=== PATIENT | male | born 1965 | race African-American/Black ===

== ENCOUNTER 2019-02-09 10:34 | Inpatient (IN) | payer OTHER ==
[2019-02-09 12:19] VITALS: BMI 27.8
--- NOTE | 2019-02-09 14:00 | HP ---
CIWA Score - Admission Criteria OASAS Guidelines: Admission for Medically Managed Detox: Requires at least one of the followin. CIWA greater than 12 2. Seizures within the past 24 hours 3. Delirium tremens within the past 24 hours 4. Hallucinations within the past 24 hours 5. Acute intervention needed for co occurring medical disorder 6. Acute intervention needed for co occurring psychiatric disorder 7. Severe withdrawal that cannot be handled at a lower level of care (continued vomiting, continued diarrhea, abnormal vital signs) requiring intravenous medication and/or fluids 8. Admission ROS [facility] Chief Complaint: 53 y/o M PMH asthma, HIV (VL undetectable, CD4 500-600 per pt. not on meds, self d/c) who presents for rehab from alcohol. Last drink was 1 week ago - had 1 and a fifth pint of vodka. Drinks this amount daily. However has not drank in a week, states that he started going to AA and it has helped him. Has gone to multiple meetings, does not have a sponsor yet. Longest sobriety in past was six months; aided by family. States that drinking started as a social activity but then he started drinking in the morning to wake up. It helped him feel better in his life. Last used crack cocaine 1 week ago, smokes 3x/month $100 worth. Also marijuana daily 3 blunts at a time. PMH: as above PsxH: denies meds: denies allergies: NKDA FH: denies SH: lives in a motel through an agency. smokes 1/2 ppd x 5-10 yrs. alcohol and crack cocaine use as above. Allergies/Adverse Reactions: Allergies Allergy/AdvReac Type Severity Reaction Status Date / Time No Known Allergies Allergy Verified 02/09/19 12:12 Exam Limitations: No Limitations - Ebola screening Have you traveled outside of the country in the last 21 days: No Have you had contact with anyone from an Ebola affected area: No Have you been sick,other than usual withdrawal symptoms: No Do you have a fever: No - Review of Systems Constitutional: No Symptoms Reported EENT: reports: No Symptoms Reported Respiratory: reports: No Symptoms reported Cardiac: reports: No Symptoms Reported GI: reports: No Symptoms Reported : reports: No Symptoms Reported Musculoskeletal: reports: No Symptoms Reported Integumentary: reports: No Symptoms Reported, Other (+tattoos UE) Neuro: reports: No Symptoms reported Endocrine: reports: No Symptoms Reported Hematology: reports: No Symptoms Reported Psychiatric: reports: Orientated x3 Patient History - Patient Medical History Hx Anemia: No Hx Asthma: Yes (was on albuterol previously has not been compliant) Hx Chronic Obstructive Pulmonary Disease (COPD): No Hx Cancer: No Hx Cardiac Disorders: No Hx Congestive Heart Failure: No Hx Hypertension: No Hx Hypercholesterolemia: No Hx Pacemaker: No HX Cerebrovascular Accident: No Hx Seizures: No Hx Diabetes: No Hx Gastrointestinal Disorders: No Hx Liver Disease: No Hx Genitourinary Disorders: No Hx Sexually Transmitted Disorders: No Hx Renal Disease (ESRD): No Hx Thyroid Disease: No Hx Human Immunodeficiency Virus (HIV): Yes (SINCE 1998. states VL undetectable, cd4 500-600) Hx Hepatitis C: No Hx Depression: No Hx Suicide Attempt: No Hx Bipolar Disorder: No Hx Schizophrenia: No - Patient Surgical History Past Surgical History: No Hx Neurologic Surgery: No Hx Cataract Extraction: No Hx Cardiac Surgery: No Hx Lung Surgery: No Hx Breast Surgery: No Hx Breast Biopsy: No Hx Abdominal Surgery: No Hx Appendectomy: No Hx Cholecystectomy: No Hx Genitourinary Surgery: No Hx Section: No Hx Orthopedic Surgery: No Anesthesia Reaction: No - PPD History Documented Results: Positive w/o proof PPD to be Administered?: No - Reproductive History Patient is a Female of Child Bearing Age (11 -55 yrs old): No - Smoking Cessation Smoking history: Current every day smoker Aproximately how many cigarettes per day: 10 Cigars Per Day: 0 Hx Chewing Tobacco Use: No Initiated information on smoking cessation: Yes 'Breaking Loose' booklet given: 02/09/19 - Substance & Tx. History Substance Use Type: Alcohol, Cocaine, Marijuana Hx Substance Use Treatment: Yes ([facility] 3-4 months ago, detox 2016) - Substances abused Alcohol Substance route: Oral Frequency: Daily Amount used: 1 pint 1/5 vodka Age of first use: 13 Date of last use: 02/02/19 Cocaine Substance route: Smoking Frequency: 1-3 times last 30 days Amount used: $100 worth Marijuana/Hashish Substance route: Smoking Frequency: Daily Amount used: 3 blunts daily Date of last use: 02/08/19 Family Disease History - Family Disease History Family History: Denies Admission Physical Exam BHS - Vital Signs Vital Signs: Vital Signs - 24 hr 02/09/19 12:14 Temperature 97.1 F L Pulse Rate 70 Respiratory 18 Rate Blood Pressure 116/78 - Physical General Appearance: Yes: Within Normal Limits HEENTM: Yes: Within Normal Limits Respiratory: Yes: Lungs Clear Neck: Yes: Supple Breast: Yes: Breast Exam Deferred Cardiology: Yes: Regular Rate, S1, S2 Abdominal: Yes: Soft Genitourinary: Yes: Within Normal Limits Back: Yes: Within Normal Limits Musculoskeletal: Yes: Within Normal Limits Extremities: Yes: Within Normal Limits Neurological: Yes: 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 II-XII NML intact Integumentary: Yes: Dry, Warm Lymphatic: Yes: Within Normal Limits - Diagnostic (1) Alcohol dependence Current Visit: Yes Status: Chronic (2) Marijuana dependence Current Visit: Yes Status: Chronic (3) Cocaine dependence Current Visit: Yes Status: Chronic (4) HIV (human immunodeficiency virus infection) Current Visit: Yes Status: Chronic Qualifiers: HIV symptom status: asymptomatic Qualified Code(s): Z21 - Asymptomatic human immunodeficiency virus [HIV] infection status (5) Nicotine dependence Current Visit: Yes Status: Chronic (6) Asthma Current Visit: Yes Status: Chronic Qualifiers: Asthma complication type: uncomplicated Cleared for Admission S - Detox or Rehab S Level of Care: Medically Managed Detox Regimen/Protocol: Not Applicable Claeared for Rehab Admission: Yes Breathalyzer - Breathalyzer Breathalyzer: 0 Urine Drug Screen - Test Device Lot number: [id number] Expiration date: 11/21/20 - Control Is test valid?: Yes - Results Drug screen NEGATIVE: No Urine drug screen results: THC-Marijuana Inpatient Rehab Admission - Rehab Decision to Admit Inpatient rehab admission?: Yes - Initial Determination Are CD services needed?: Yes Free of communicable disease: Yes Not in need of hospitalization: Yes - Rehab Admission Criteria Previous failed treatment: Yes Poor recovery environment: Yes Comorbidities: Yes Lacks judgement: No Patient is meeting Inpatient Rehab admission criteria:: Yes
[2019-02-09] MEDS ORDERED: MAG HYDROX/AL HYDROX/SIMETH 30 ML UNIT-DOSE CUP PO PRN (14:21)
[2019-02-09] MEDS ORDERED: MENTHOL/PHENOL 1 EACH UD MM PRN (14:21)
[2019-02-09] MEDS ORDERED: IBUPROFEN 400 MG TABLET (FP) PO PRN (14:21)
[2019-02-09] MEDS ORDERED: guaiFENesin 200 MG/10 ML 10 ML UNIT-DOSE CUPS PO PRN (14:21)
[2019-02-09] MEDS ORDERED: MAGNESIUM HYDROX 2400MG/30ML ORAL SUSPENSION 30 ML CUP PO PRN (14:21)
[2019-02-09] MEDS ORDERED: LOPERAMIDE HCL 2 MG CAPSULE PO PRN (14:21)
[2019-02-09] MEDS ORDERED: P-EPHED 60MG/TRIPROLIDI 2.5MG TABLET PO PRN (14:21)
--- NOTE | 2019-02-09 14:22 | PN ---
Teaching Attending Note Name of Resident: Purnima Izaguirre ATTENDING PHYSICIAN STATEMENT I saw and evaluated the patient. I reviewed the resident's note and discussed the case with the resident. I agree with the resident's findings and plan as documented. SUBJECTIVE: pt here requesting rehab from etoh abuse , claims latest use was 1 week ago , denies symptoms , states he " weaned himself off " over several days , prior detox at this facility 2015 , longest sobriety six months; aided by family. cocaine : latest used 1 week ago cannabis : daily 3 blunts OBJECTIVE: wnwd , AAO x 3 , ambulatory . ASSESSMENT AND PLAN: ETOH abuse / COCAINE ABUSE , EPSIODIC / CANNABIS DEPENDENCE -rehab as per insurance auth. Problem List - Problems (1) Cannabis dependence Code(s): F12.20 - CANNABIS DEPENDENCE, UNCOMPLICATED (2) Alcohol dependence Code(s): F10.20 - ALCOHOL DEPENDENCE, UNCOMPLICATED (3) Cocaine dependence Code(s): F14.20 - COCAINE DEPENDENCE, UNCOMPLICATED (4) Nicotine dependence Code(s): F17.200 - NICOTINE DEPENDENCE, UNSPECIFIED, UNCOMPLICATED
[2019-02-09] MEDS ORDERED: ALBUTEROL SO4 0.083% IH SOL 2.5 MG/3 ML VIAL.NEB. NEB PRN (14:23)
[2019-02-09] MEDS: NICOTINE 7 MG/24 HOURS TOPICAL PATCH TD SCH (16:59)
[2019-02-09 18:15] LABS: EPI CELLS 0.7 /HPF (0-5/HPF); HYALINE CASTS 5 /lpf (0-8); URINE APPEARANCE CLEAR; URINE BACTERIA 1.9 /hpf (NEGATIVE); URINE BILIRUBIN NEGATIVE (NEGATIVE); URINE COLOR YELLOW; URINE GLUCOSE (UA) NEGATIVE (NEGATIVE); URINE KETONE NEGATIVE (NEGATIVE); URINE LEUK ESTERASE TRACE (NEGATIVE); URINE NITRITE NEGATIVE (NEGATIVE); URINE PROTEIN NEGATIVE (NEGATIVE); URINE RBC 2 /hpf (0-4); URINE WBC 12 /hpf (0-5)
[2019-02-09 20:13] LABS: URINE CRYSTALS CALCIUM OXALATE /hpf
[2019-02-09] MEDS: THIAMINE HCL 100 MG TABLET (FP) PO SCH (21:52)
[2019-02-10] MEDS: PRENATAL VITAMINS W/ FOLIC ACID TABLET (FP) PO SCH (10:13)
[2019-02-10] MEDS: NICOTINE 7 MG/24 HOURS TOPICAL PATCH TD SCH (10:13)
[2019-02-10 10:40] LABS: BILIRUBIN,TOTAL 0.4 mg/dL (0.2-1); BLOOD UREA NITROGEN 16.4 mg/dL (7-18); CALCIUM 8.2 mg/dL (8.5-10.1); CREATININE 1.1 mg/dL (0.55-1.3); TOT PROT 6.3 g/dl (6.4-8.2)
[2019-02-10 10:42] LABS: HEMATOCRIT 40.4 % (35.4-49); HEMOGLOBIN 13.7 GM/dL (11.7-16.9); MCH 30.1 pg (25.7-33.7); MCHC 33.8 g/dl (32.0-35.9); MEAN CELL VOLUME 89.1 fl (80-96); MEAN PLT VOLUME 9.2 fl (7.5-11.1); PLATELET COUNT 138 K/MM3 (134-434); RBC 4.54 M/mm3 (4.00-5.60); RDW 16.4 % (11.9-15.9); WHITE BLOOD COUNT 6.3 K/mm3 (4.0-10.0)
[2019-02-10] MEDS: THIAMINE HCL 100 MG TABLET (FP) PO SCH (21:08)
[2019-02-10] MEDS: MELATONIN 5 MG TABLETS PO PRN (21:08)
[2019-02-11] MEDS: NICOTINE 7 MG/24 HOURS TOPICAL PATCH TD SCH (10:47)
[2019-02-11] MEDS: PRENATAL VITAMINS W/ FOLIC ACID TABLET (FP) PO SCH (10:47)
[2019-02-11] MEDS: THIAMINE HCL 100 MG TABLET (FP) PO SCH (21:32)
[2019-02-11] MEDS: MELATONIN 5 MG TABLETS PO PRN (21:32)
[2019-02-11] MEDS: ACETAMINOPHEN 325 MG TABLET (FP) PO PRN (21:33)
[2019-02-12] MEDS: PRENATAL VITAMINS W/ FOLIC ACID TABLET (FP) PO SCH (11:11)
[2019-02-12] MEDS: NICOTINE 7 MG/24 HOURS TOPICAL PATCH TD SCH (11:11)
[2019-02-12] MEDS: THIAMINE HCL 100 MG TABLET (FP) PO SCH (21:37)
[2019-02-12] MEDS: MELATONIN 5 MG TABLETS PO PRN (21:37)
[2019-02-13] MEDS: ACETAMINOPHEN 325 MG TABLET (FP) PO PRN (06:52)
[2019-02-13] MEDS: NICOTINE 7 MG/24 HOURS TOPICAL PATCH TD SCH (10:58)
[2019-02-13] MEDS: PRENATAL VITAMINS W/ FOLIC ACID TABLET (FP) PO SCH (10:58)
[2019-02-13] MEDS ORDERED: LIDOCAINE VISCOUS 2% ORAL/TOP 20 ML UNIT-DOSE CUP MM PRN (11:22)
--- NOTE | 2019-02-13 11:36 | PN ---
[facility] Progress Note Note: Pt c/o toothache to right upper molar. Reports hx toothaches and was at the dentist 2 months ago with pain and swelling. Reports was given antibiotics to resolve swelling before extraction. Reports he has an oral surgeon on [address](pt does not remember his name but reports he goes to him on a regular basis ). Pt is reluctant to give information of his primary care provider stating " I do not go to them and I am not taking any meds"(Triumeq) which is posted in his outside pharmacy. Reports "it is messing with my bone and liver". Pt reports he has not made his concerns known to his medical provider(s). However, pt states [facility] is an option for his primary care needs. Pt does not want to further talk about his medication except his tooth pain. Vital Signs - 24 hr 02/13/19 02/13/19 03:30 07:02 Temperature 99.3 F Pulse Rate 89 Respiratory 18 18 Rate Blood Pressure 115/68 Laboratory Tests 02/09/19 02/10/19 02/10/19 15:57 08:00 08:00 WBC RBC Hgb Hct MCV MCH MCHC RDW Plt Count MPV Sodium 142 Potassium 4.0 Chloride 111 H Carbon Dioxide 27 Anion Gap 4 L BUN 16.4 Creatinine 1.1 Est GFR (CKD-EPI)AfAm 87.74 Est GFR (CKD-EPI)NonAf 75.70 Random Glucose 80 Calcium 8.2 L Total Bilirubin 0.4 AST 21 ALT 25 Alkaline Phosphatase 77 Total Protein 6.3 L Albumin 3.0 L Urine Color Yellow Urine Appearance Clear Urine pH 6.0 Ur Specific [place] 1.029 Urine Protein Negative Urine Glucose (UA) Negative Urine Ketones Negative Urine Blood Negative Urine Nitrite Negative Urine Bilirubin Negative Urine Urobilinogen 1.0 Ur Leukocyte Esterase Trace Urine WBC (Auto) 12 Urine RBC (Auto) 2 Urine Casts (Auto) 5 U Epithel Cells (Auto) 0.7 Urine Crystals (Auto) Calcium oxalate Urine Bacteria (Auto) 1.9 RPR Titer Nonreactive 02/10/19 08:00 WBC 6.3 RBC 4.54 Hgb 13.7 Hct 40.4 MCV 89.1 MCH 30.1 MCHC 33.8 RDW 16.4 H Plt Count 138 MPV 9.2 Sodium Potassium Chloride Carbon Dioxide Anion Gap BUN Creatinine Est GFR (CKD-EPI)AfAm Est GFR (CKD-EPI)NonAf Random Glucose Calcium Total Bilirubin AST ALT Alkaline Phosphatase Total Protein Albumin Urine Color Urine Appearance Urine pH Ur Specific [place] Urine Protein Urine Glucose (UA) Urine Ketones Urine Blood Urine Nitrite Urine Bilirubin Urine Urobilinogen Ur Leukocyte Esterase Urine WBC (Auto) Urine RBC (Auto) Urine Casts (Auto) U Epithel Cells (Auto) Urine Crystals (Auto) Urine Bacteria (Auto) RPR Titer oral exam:multiple teeth with fillings/poor maintenance. No redness or swelling to gums. A:tooth ache Hx HIV+ Noncompliance with meds Plan:lidocaine viscous 2% to swish and spit prn as directed. motrin 600 mg po Q6h prn for pain D/w patient to follow up with Dentist/oral surgeon after rehab treatment.
[2019-02-13] MEDS: IBUPROFEN 600 MG TABLET (FP) PO PRN (18:53)
[2019-02-13] MEDS: THIAMINE HCL 100 MG TABLET (FP) PO SCH (21:45)
[2019-02-13] MEDS: MELATONIN 5 MG TABLETS PO PRN (21:45)
[2019-02-14] MEDS: PRENATAL VITAMINS W/ FOLIC ACID TABLET (FP) PO SCH (10:22)
[2019-02-14] MEDS: NICOTINE 7 MG/24 HOURS TOPICAL PATCH TD SCH (10:22)
[2019-02-14] MEDS: IBUPROFEN 600 MG TABLET (FP) PO PRN (15:47)
[2019-02-14] MEDS: MELATONIN 5 MG TABLETS PO PRN (21:35)
[2019-02-14] MEDS: THIAMINE HCL 100 MG TABLET (FP) PO SCH (21:35)
[2019-02-15] MEDS: NICOTINE 7 MG/24 HOURS TOPICAL PATCH TD SCH (11:08)
[2019-02-15] MEDS: PRENATAL VITAMINS W/ FOLIC ACID TABLET (FP) PO SCH (11:08)
[2019-02-15] MEDS: IBUPROFEN 600 MG TABLET (FP) PO PRN (19:19)
[2019-02-15] MEDS: MELATONIN 5 MG TABLETS PO PRN (21:40)
[2019-02-15] MEDS: THIAMINE HCL 100 MG TABLET (FP) PO SCH (21:40)
[2019-02-16] MEDS: PRENATAL VITAMINS W/ FOLIC ACID TABLET (FP) PO SCH (10:47)
[2019-02-16] MEDS: NICOTINE 7 MG/24 HOURS TOPICAL PATCH TD SCH (10:47)
[2019-02-16] MEDS: IBUPROFEN 600 MG TABLET (FP) PO PRN (16:42)
[2019-02-16] MEDS: MELATONIN 5 MG TABLETS PO PRN (21:40)
[2019-02-16] MEDS: THIAMINE HCL 100 MG TABLET (FP) PO SCH (21:40)
[2019-02-17] MEDS: PRENATAL VITAMINS W/ FOLIC ACID TABLET (FP) PO SCH (11:05)
[2019-02-17] MEDS: NICOTINE 7 MG/24 HOURS TOPICAL PATCH TD SCH (11:05)
[2019-02-17] MEDS: IBUPROFEN 600 MG TABLET (FP) PO PRN (18:02)
[2019-02-17] MEDS: MELATONIN 5 MG TABLETS PO PRN (21:23)
[2019-02-17] MEDS: THIAMINE HCL 100 MG TABLET (FP) PO SCH (21:23)
[2019-02-18] MEDS: PRENATAL VITAMINS W/ FOLIC ACID TABLET (FP) PO SCH (10:48)
[2019-02-18] MEDS: NICOTINE 7 MG/24 HOURS TOPICAL PATCH TD SCH (10:48)
[2019-02-18] MEDS: ACETAMINOPHEN 325 MG TABLET (FP) PO PRN (20:25)
[2019-02-18] MEDS: MELATONIN 5 MG TABLETS PO PRN (21:06)
[2019-02-18] MEDS: THIAMINE HCL 100 MG TABLET (FP) PO SCH (21:06)
[2019-02-19] MEDS: PRENATAL VITAMINS W/ FOLIC ACID TABLET (FP) PO SCH (11:14)
[2019-02-19] MEDS: NICOTINE 7 MG/24 HOURS TOPICAL PATCH TD SCH (11:14)
[2019-02-19] MEDS: THIAMINE HCL 100 MG TABLET (FP) PO SCH (22:11)
[2019-02-19] MEDS: MELATONIN 5 MG TABLETS PO PRN (22:12)
[2019-02-20] MEDS: IBUPROFEN 600 MG TABLET (FP) PO PRN ×2 (06:56→20:22)
[2019-02-20] MEDS: PRENATAL VITAMINS W/ FOLIC ACID TABLET (FP) PO SCH (10:55)
[2019-02-20] MEDS: NICOTINE 7 MG/24 HOURS TOPICAL PATCH TD SCH (10:55)
[2019-02-20] MEDS: THIAMINE HCL 100 MG TABLET (FP) PO SCH (21:59)
[2019-02-20] MEDS: MELATONIN 5 MG TABLETS PO PRN (21:59)
[2019-02-21] MEDS: NICOTINE 7 MG/24 HOURS TOPICAL PATCH TD SCH (10:48)
[2019-02-21] MEDS: PRENATAL VITAMINS W/ FOLIC ACID TABLET (FP) PO SCH (10:48)
[2019-02-21] MEDS: THIAMINE HCL 100 MG TABLET (FP) PO SCH (21:49)
[2019-02-21] MEDS: MELATONIN 5 MG TABLETS PO PRN (21:49)
[2019-02-22] MEDS: PRENATAL VITAMINS W/ FOLIC ACID TABLET (FP) PO SCH (11:35)
[2019-02-22] MEDS: NICOTINE 7 MG/24 HOURS TOPICAL PATCH TD SCH (11:35)
[2019-02-22] MEDS: THIAMINE HCL 100 MG TABLET (FP) PO SCH (21:46)
[2019-02-22] MEDS: MELATONIN 5 MG TABLETS PO PRN (21:46)
[2019-02-23 07:05] VITALS: BP 94/62; PULSE 89; TEMP 98
[2019-02-23] MEDS: PRENATAL VITAMINS W/ FOLIC ACID TABLET (FP) PO SCH ×2 (09:37→09:38)
[2019-02-23] MEDS: NICOTINE 7 MG/24 HOURS TOPICAL PATCH TD SCH (09:37)
--- NOTE | 2019-02-23 11:56 | PN ---
S Progress Note (SOAP) Subjective: pt is a 53 y/o male admitted to rehab with a hx of alcohol,cocaine and marijuana dependence. Pt has a PMHx HIV+ and asthma. Pt reports he has not been taking Rx Triumeq for sometimes and was not on it while in treatment here. D/w pt to follow up with his PCP at [facility] for disease management. Pt denies s/h/i Objective: 02/23/19 12:07 General:well groomed,ambulates with steady gait. Heent:Normocephalic, perrla,eomi,throat wnl Heart:s1 s2, rrr Lungs:cta, corazon. Abdomen:+bs, soft, nt,nd Ext:No e/c/c Neuro:Alert o x 3, Crii-xii intact Vital Signs - 24 hr 02/23/19 02/23/19 02/23/19 00:30 03:30 07:04 Temperature 98.0 F Pulse Rate 89 Respiratory 18 18 18 Rate Blood Pressure 94/62 Laboratory Tests 02/09/19 02/10/19 02/10/19 15:57 08:00 08:00 WBC RBC Hgb Hct MCV MCH MCHC RDW Plt Count MPV Sodium 142 Potassium 4.0 Chloride 111 H Carbon Dioxide 27 Anion Gap 4 L BUN 16.4 Creatinine 1.1 Est GFR (CKD-EPI)AfAm 87.74 Est GFR (CKD-EPI)NonAf 75.70 Random Glucose 80 Calcium 8.2 L Total Bilirubin 0.4 AST 21 ALT 25 Alkaline Phosphatase 77 Total Protein 6.3 L Albumin 3.0 L Urine Color Yellow Urine Appearance Clear Urine pH 6.0 Ur Specific [place] 1.029 Urine Protein Negative Urine Glucose (UA) Negative Urine Ketones Negative Urine Blood Negative Urine Nitrite Negative Urine Bilirubin Negative Urine Urobilinogen 1.0 Ur Leukocyte Esterase Trace Urine WBC (Auto) 12 Urine RBC (Auto) 2 Urine Casts (Auto) 5 U Epithel Cells (Auto) 0.7 Urine Crystals (Auto) Calcium oxalate Urine Bacteria (Auto) 1.9 RPR Titer Nonreactive 02/10/19 08:00 WBC 6.3 RBC 4.54 Hgb 13.7 Hct 40.4 MCV 89.1 MCH 30.1 MCHC 33.8 RDW 16.4 H Plt Count 138 MPV 9.2 Sodium Potassium Chloride Carbon Dioxide Anion Gap BUN Creatinine Est GFR (CKD-EPI)AfAm Est GFR (CKD-EPI)NonAf Random Glucose Calcium Total Bilirubin AST ALT Alkaline Phosphatase Total Protein Albumin Urine Color Urine Appearance Urine pH Ur Specific [place] Urine Protein Urine Glucose (UA) Urine Ketones Urine Blood Urine Nitrite Urine Bilirubin Urine Urobilinogen Ur Leukocyte Esterase Urine WBC (Auto) Urine RBC (Auto) Urine Casts (Auto) U Epithel Cells (Auto) Urine Crystals (Auto) Urine Bacteria (Auto) RPR Titer Home Medications Medication Instructions Recorded NK [No Known Home Medication] 02/09/19 Assessment: 02/23/19 12:10 Nad Medically stable [facility] Inpatient Services Medical - Diagnosis (1) Cannabis dependence Status: Chronic (2) Alcohol dependence Qualifiers: Substance use status: uncomplicated Qualified Code(s): F10.20 - Alcohol dependence, uncomplicated Status: Chronic (3) Asthma Qualifiers: Asthma severity: unspecified severity Asthma persistence: unspecified Asthma complication type: unspecified Qualified Code(s): J45.909 - Unspecified asthma, uncomplicated Status: Chronic (4) Cocaine dependence Qualifiers: Substance use status: uncomplicated Qualified Code(s): F14.20 - Cocaine dependence, uncomplicated Status: Chronic (5) HIV (human immunodeficiency virus infection) Qualifiers: HIV symptom status: asymptomatic Qualified Code(s): Z21 - Asymptomatic human immunodeficiency virus [HIV] infection status Status: Chronic (6) Nicotine dependence Qualifiers: Nicotine product type: cigarettes Substance use status: uncomplicated Qualified Code(s): F17.210 - Nicotine dependence, cigarettes, uncomplicated Status: Chronic Initialized on 02/23/19 11:56 - END OF NOTE Plan: [facility] [address] [place], [place] Follow up with PCP at [facility] within 1-2 weeks after discharge.
== END 2019-02-23 09:45 | disposition home or self-care (01) | DRG 772 ==
LOC: YASAS 10:34 → Y5N 14:32
PROVIDERS: ADMIT Neuromusculoskeletal Medicine & OMM; ATTEND Neuromusculoskeletal Medicine & OMM
PROC: HZ42ZZZ Group Counseling for Substance Abuse Treatment, Cognitive-Behavioral (ICD-10-PCS; principal; 2019-02-09)
DX: F10.20 Alcohol dependence, uncomplicated (principal); F14.20 Cocaine dependence, uncomplicated; F12.20 Cannabis dependence, uncomplicated; F17.200 Nicotine dependence, unspecified, uncomplicated; Z21 Asymptomatic human immunodeficiency virus [HIV] infection status; J45.909 Unspecified asthma, uncomplicated; K08.89 Other specified disorders of teeth and supporting structures
CPT/HCPCS: 36415; 71046-TC-FY; 80053; 81003; 85027; 86593

== ENCOUNTER 2019-05-06 08:41 | Inpatient (IN) | payer OTHER ==
[2019-05-06 09:00] VITALS: BMI 27.8
--- NOTE | 2019-05-06 09:56 | HP ---
COWS - Scale Resting Pulse: 1= [place] 81-100 Sweatin= Chills/Flushing Restless Observation: 1= Difficult to Sit Still Pupil Size: 1= Pupils >than Normal Bone or Joint Aches: 1= Mild Discomfort Runny Nose/ Eye Tearin= Nasal Congestion GI Upset > 30mins: 1= Stomach Cramp Tremor Observation: 1= Tremor [place], Not Seen Yawning Observation: 0= None Anxiety or Irritability: 1=Feels Anxious/Irritable Goose Flesh Skin: 3=Piloerection COWS Score: 12 CIWA Score - Admission Criteria OASAS Guidelines: Admission for Medically Managed Detox: Requires at least one of the followin. CIWA greater than 12 2. Seizures within the past 24 hours 3. Delirium tremens within the past 24 hours 4. Hallucinations within the past 24 hours 5. Acute intervention needed for co occurring medical disorder 6. Acute intervention needed for co occurring psychiatric disorder 7. Severe withdrawal that cannot be handled at a lower level of care (continued vomiting, continued diarrhea, abnormal vital signs) requiring intravenous medication and/or fluids 8. Admitting History and Physical - Smoking History Smoking history: Current every day smoker Aproximately how many cigarettes per day: 10 - Alcohol/Substance Use Hx Alcohol Use: Yes Admission ROS S - HPI Chief Complaint: heroin detox Allergies/Adverse Reactions: Allergies Allergy/AdvReac Type Severity Reaction Status Date / Time No Known Allergies Allergy Verified 05/06/19 08:55 History of Present Illness: 53 yo, L eye blindness, HIV pos- does not take medications, with long h/o heroin use, was last here 3 months ago. Pt states he was feeling unwell after taking heroin- too strong- called ambulance and was taken to [facility] ER. Pt not given meds. Pt brought here. He would like to complete detox and go to rehab. Pt lives at a [facility]. Does not work. Has SSI. 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- for relaxation - Ebola screening Have you traveled outside of the country in the last 21 days: No Have you had contact with anyone from an Ebola affected area: No - Review of Systems Constitutional: No Symptoms Reported EENT: reports: No Symptoms Reported Respiratory: reports: No Symptoms reported Cardiac: reports: No Symptoms Reported GI: reports: No Symptoms Reported : reports: No Symptoms Reported Musculoskeletal: reports: No Symptoms Reported Integumentary: reports: No Symptoms Reported Neuro: reports: No Symptoms reported Endocrine: reports: No Symptoms Reported Hematology: reports: No Symptoms Reported Psychiatric: reports: No Sypmtoms Reported Other Systems: Reviewed and Negative Patient History - Patient Medical History Hx Anemia: No Hx Asthma: Yes (was on albuterol previously has not been compliant) Hx Chronic Obstructive Pulmonary Disease (COPD): No Hx Cancer: No Hx Cardiac Disorders: No Hx Congestive Heart Failure: No Hx Hypertension: No Hx Hypercholesterolemia: No Hx Pacemaker: No HX Cerebrovascular Accident: No Hx Seizures: No Hx Diabetes: No Hx Gastrointestinal Disorders: No Hx Liver Disease: No Hx Genitourinary Disorders: No Hx Sexually Transmitted Disorders: No Hx Renal Disease (ESRD): No Hx Thyroid Disease: No Hx Human Immunodeficiency Virus (HIV): Yes (SINCE 1998. states VL undetectable, cd4 500-600) Hx Hepatitis C: No Hx Depression: No Hx Suicide Attempt: No Hx Bipolar Disorder: No Hx Schizophrenia: No - Patient Surgical History Past Surgical History: No Hx Neurologic Surgery: No Hx Cataract Extraction: No Hx Cardiac Surgery: No Hx Lung Surgery: No Hx Breast Surgery: No Hx Breast Biopsy: No Hx Abdominal Surgery: No Hx Appendectomy: No Hx Cholecystectomy: No Hx Genitourinary Surgery: No Hx Section: No Hx Orthopedic Surgery: No Anesthesia Reaction: No - Smoking Cessation Smoking history: Current every day smoker Aproximately how many cigarettes per day: 10 Cigars Per Day: 0 Hx Chewing Tobacco Use: No Initiated information on smoking cessation: Yes 'Breaking Loose' booklet given: 05/06/19 - Substances abused Alcohol Substance route: Oral Frequency: Daily Amount used: 1/5 vodka Age of first use: 13 Date of last use: 05/05/19 Cocaine Substance route: Smoking Frequency: 1-3 times last 30 days Amount used: $100 worth Marijuana/Hashish Substance route: Smoking Frequency: Daily Amount used: 3 blunts daily Age of first use: 15 Date of last use: 05/05/19 Crack Substance route: Smoking Frequency: 1-3 times last 30 days Amount used: $200 Age of first use: 18 Date of last use: 05/05/19 Heroin Substance route: Inhalation Frequency: Daily Amount used: 1 bundle Age of first use: 20 Date of last use: 05/05/19 Admission Physical Exam BHS - Vital Signs Vital Signs: Vital Signs - 24 hr 05/06/19 08:54 Temperature 97.3 F L Pulse Rate 75 Respiratory 18 Rate Blood Pressure 103/69 - Physical General Appearance: Yes: Within Normal Limits, No Apparent Distress HEENTM: Yes: Within Normal Limits, EOMI, Hearing grossly Normal Respiratory: Yes: Within Normal Limits, Chest Non-Tender, Lungs Clear Cardiology: Yes: Within Normal Limits, Regular Rhythm Abdominal: Yes: Within Normal Limits, Normal Bowel Sounds Genitourinary: Yes: Within Normal Limits Back: Yes: Within Normal Limits Musculoskeletal: Yes: Within Normal Limits Extremities: Yes: Within Normal Limits, Normal Inspection Neurological: Yes: Within Normal Limits, Fully Oriented Integumentary: Yes: Within Normal Limits, Normal Color Lymphatic: Yes: Within Normal Limits - Diagnostic (1) Cannabis dependence Current Visit: No Status: Chronic (2) HIV (human immunodeficiency virus infection) Current Visit: No Status: Chronic Qualifiers: HIV symptom status: asymptomatic Qualified Code(s): Z21 - Asymptomatic human immunodeficiency virus [HIV] infection status (3) Opioid dependence with withdrawal Current Visit: No Status: Chronic Breathalyzer - Breathalyzer Breathalyzer: 0 Urine Drug Screen - Test Device Lot number: [id number] Expiration date: 12/22/20 - Control Is test valid?: Yes - Results Drug screen NEGATIVE: Yes Urine drug screen results: THC-Marijuana, TORY-Cocaine, FEN-Fentanyl, MOP-Opiates , OXY-Oxycodone Inpatient Rehab Admission - Rehab Decision to Admit Inpatient rehab admission?: No
[2019-05-06] MEDS ORDERED: BISMUTH SUBSALICYLATE 524 MG/30 ML UD PO PRN (10:01)
[2019-05-06] MEDS ORDERED: ACETAMINOPHEN 325 MG TABLET (FP) PO PRN ×2 (10:01)
[2019-05-06] MEDS ORDERED: METHADONE HCL 10 MG TABLET (FOR DETOX USE ONLY) PO ONE (10:01)
[2019-05-06] MEDS ORDERED: IBUPROFEN 400 MG TABLET (FP) PO PRN (10:01)
[2019-05-06] MEDS ORDERED: MAGNESIUM CITRATE 300 ML BOTTLE PO PRN (10:01)
[2019-05-06] MEDS ORDERED: cloNIDine HCL 0.1 MG TABLET PO PRN (10:01)
[2019-05-06] MEDS ORDERED: NICOTINE POLACRILEX 2 MG GUM BUC PRN (10:01)
[2019-05-06] MEDS ORDERED: MAGNESIUM HYDROX 2400MG/30ML ORAL SUSPENSION 30 ML CUP PO PRN (10:01)
[2019-05-06] MEDS ORDERED: MENTHOL/PHENOL 1 EACH UD MM PRN (10:01)
[2019-05-06] MEDS: clonazePAM 0.5 MG TABLET PO PRN (16:54)
[2019-05-06] MEDS: THIAMINE HCL 100 MG TABLET (FP) PO SCH (22:11)
[2019-05-06] MEDS: MELATONIN 5 MG TABLETS PO PRN (22:12)
[2019-05-06] MEDS: hydrOXYzine PAMOATE 25 MG CAPSULE (FP) PO PRN (22:12)
[2019-05-07] MEDS: hydrOXYzine PAMOATE 25 MG CAPSULE (FP) PO PRN ×2 (07:03→15:54)
[2019-05-07] MEDS ORDERED: METHADONE HCL 10 MG TABLET (FOR DETOX USE ONLY) ONE (09:49)
[2019-05-07] MEDS ORDERED: METHADONE HCL 5 MG TABLET (FOR DETOX USE ONLY) ONE (09:49)
[2019-05-07] MEDS ORDERED: METHADONE (DETOX) 20 MG, METHADONE (DETOX) 5 MG PO ONE (10:00)
[2019-05-07 10:08] LABS: HEMATOCRIT 38.7 % (35.4-49); HEMOGLOBIN 13.1 GM/dL (11.7-16.9); MCH 30.3 pg (25.7-33.7); MEAN CELL VOLUME 89.1 fl (80-96); MEAN PLT VOLUME 9.3 fl (7.5-11.1); PLATELET COUNT 121 K/MM3 (134-434); RBC 4.34 M/mm3 (4.00-5.60); RDW 17.6 % (11.9-15.9); WHITE BLOOD COUNT 4.8 K/mm3 (4.0-10.0)
[2019-05-07] MEDS: PRENATAL VITAMINS W/ FOLIC ACID TABLET (FP) PO SCH (10:10)
[2019-05-07] MEDS: MAG HYDROX/AL HYDROX/SIMETH 30 ML UNIT-DOSE CUP PO PRN (10:10)
[2019-05-07 10:18] LABS: BILIRUBIN,TOTAL 0.2 mg/dL (0.2-1); BLOOD UREA NITROGEN 22.4 mg/dL (7-18); CALCIUM 8.3 mg/dL (8.5-10.1); CREATININE 1.1 mg/dL (0.55-1.3); POTASSIUM 4.3 mmol/L (3.5-5.1); TOT PROT 5.9 g/dl (6.4-8.2)
--- NOTE | 2019-05-07 18:24 | PN ---
BHS COWS - Scale Resting Pulse: 0= [place] 80 or Below Sweatin= Chills/Flushing Restless Observation: 1= Difficult to Sit Still Pupil Size: 0= Normal to Room Light Bone or Joint Aches: 1= Mild Discomfort Runny Nose/ Eye Tearin= Nasal Congestion GI Upset > 30mins: 0= None Tremor Observation of Outstretched Hands: 0= None Yawning Observation: 1= 1-2x During Session Anxiety or Irritability: 2=Irritable/Anxious Goose Flesh Skin: 3=Piloerection COWS Score: 10 BHS Progress Note (SOAP) Subjective: Anxious, Nasal Congestion, Sweating. Objective: PATIENT A & O X 3, OBSERVED AMBULATING ON DETOX UNIT UNASSISTED. IN NO ACUTE DISTRESS. 05/07/19 18:22 Vital Signs Temperature 98.9 F 05/07/19 17:04 Pulse Rate 70 05/07/19 17:04 Respiratory Rate 18 05/07/19 17:04 Blood Pressure 87/56 L 05/07/19 17:04 O2 Sat by Pulse Oximetry (%) Laboratory Tests 05/07/19 05/07/19 05/07/19 08:00 08:00 08:00 WBC 4.8 RBC 4.34 Hgb 13.1 Hct 38.7 MCV 89.1 MCH 30.3 MCHC 34.0 RDW 17.6 H Plt Count 121 L MPV 9.3 Sodium 140 Potassium 4.3 Chloride 105 Carbon Dioxide 30 Anion Gap 5 L BUN 22.4 H Creatinine 1.1 Est GFR (CKD-EPI)AfAm 87.74 Est GFR (CKD-EPI)NonAf 75.70 Random Glucose 81 Calcium 8.3 L Total Bilirubin 0.2 AST 40 H ALT 28 Alkaline Phosphatase 85 Total Protein 5.9 L Albumin 3.0 L RPR Titer Nonreactive LABS NOTED. Assessment: 05/07/19 18:23 WITHDRAWAL SYMPTOMS. THROMBOCYTOPENIA. ELEVATED AST LEVEL. AZOTEMIA. 05/07/19 18:24 Plan: CONTINUE DETOX. INCREASE DAILY PO WATER INTAKE.
[2019-05-07] MEDS: clonazePAM 0.5 MG TABLET PO PRN (19:18)
[2019-05-07] MEDS: THIAMINE HCL 100 MG TABLET (FP) PO SCH (22:03)
[2019-05-07] MEDS: MELATONIN 5 MG TABLETS PO PRN (22:03)
[2019-05-08] MEDS: MAG HYDROX/AL HYDROX/SIMETH 30 ML UNIT-DOSE CUP PO PRN ×2 (01:56→20:37)
[2019-05-08] MEDS: clonazePAM 0.5 MG TABLET PO PRN ×3 (05:32→22:07)
[2019-05-08] MEDS ORDERED: METHADONE HCL 10 MG TABLET (FOR DETOX USE ONLY) PO ONE (10:00)
[2019-05-08] MEDS: PRENATAL VITAMINS W/ FOLIC ACID TABLET (FP) PO SCH (10:10)
[2019-05-08] MEDS ORDERED: FAMOTIDINE 20 MG TABLET PO ONE (10:20)
--- NOTE | 2019-05-08 15:21 | PN ---
BHS COWS - Scale Resting Pulse: 0= [place] 80 or Below Sweatin= Chills/Flushing Restless Observation: 1= Difficult to Sit Still Pupil Size: 0= Normal to Room Light Bone or Joint Aches: 0= None Runny Nose/ Eye Tearin= Nasal Congestion GI Upset > 30mins: 0= None Tremor Observation of Outstretched Hands: 0= None Yawning Observation: 1= 1-2x During Session Anxiety or Irritability: 2=Irritable/Anxious Goose Flesh Skin: 3=Piloerection COWS Score: 9 BHS Progress Note (SOAP) Subjective: Anxious, Nasal Congestion, Sweating, Heartburn. Patient reports That Current withdrawal Detox Symptoms in General Are Subsiding in Severity. Objective: PATIENT A & O X 3, OBSERVED AMBULATING ON DETOX UNIT UNASSISTED. IN NO ACUTE DISTRESS. 05/08/19 15:22 Vital Signs Temperature 97.7 F 05/08/19 13:28 Pulse Rate 57 L 05/08/19 13:28 Respiratory Rate 18 05/08/19 13:28 Blood Pressure 114/78 05/08/19 13:28 O2 Sat by Pulse Oximetry (%) Laboratory Tests 05/07/19 05/07/19 05/07/19 08:00 08:00 08:00 WBC 4.8 RBC 4.34 Hgb 13.1 Hct 38.7 MCV 89.1 MCH 30.3 MCHC 34.0 RDW 17.6 H Plt Count 121 L MPV 9.3 Sodium 140 Potassium 4.3 Chloride 105 Carbon Dioxide 30 Anion Gap 5 L BUN 22.4 H Creatinine 1.1 Est GFR (CKD-EPI)AfAm 87.74 Est GFR (CKD-EPI)NonAf 75.70 Random Glucose 81 Calcium 8.3 L Total Bilirubin 0.2 AST 40 H ALT 28 Alkaline Phosphatase 85 Total Protein 5.9 L Albumin 3.0 L RPR Titer Nonreactive LABS NOTED. Assessment: 05/08/19 15:23 WITHDRAWAL SYMPTOMS. ELEVATED AST LEVEL. THROMBOCYTOPENIA. Plan: CONTINUE DETOX. INCREASE DAILY PO WATER INTAKE. FAMOTIDINE PO FOR HEARTBURN.
[2019-05-08] MEDS: hydrOXYzine PAMOATE 25 MG CAPSULE (FP) PO PRN (20:37)
[2019-05-08] MEDS: THIAMINE HCL 100 MG TABLET (FP) PO SCH (22:07)
[2019-05-08] MEDS: MELATONIN 5 MG TABLETS PO PRN (22:08)
[2019-05-09] MEDS: clonazePAM 0.5 MG TABLET PO PRN ×2 (05:17→19:18)
[2019-05-09] MEDS ORDERED: METHADONE HCL 10 MG TABLET (FOR DETOX USE ONLY) ONE (09:20)
[2019-05-09] MEDS ORDERED: METHADONE HCL 5 MG TABLET (FOR DETOX USE ONLY) ONE (09:20)
[2019-05-09] MEDS ORDERED: METHADONE (DETOX) 10 MG, METHADONE (DETOX) 5 MG PO ONE (10:00)
[2019-05-09] MEDS: PRENATAL VITAMINS W/ FOLIC ACID TABLET (FP) PO SCH (10:04)
[2019-05-09] MEDS: hydrOXYzine PAMOATE 25 MG CAPSULE (FP) PO PRN ×2 (10:04→21:38)
[2019-05-09] MEDS: METHOCARBAMOL 500 MG TABLET PO PRN (10:04)
[2019-05-09] MEDS: FAMOTIDINE 20 MG TABLET PO PRN (11:21)
--- NOTE | 2019-05-09 16:38 | PN ---
[facility] COWS - Scale Resting Pulse: 0= [place] 80 or Below Sweatin= No chills or Flushing Restless Observation: 1= Difficult to Sit Still Pupil Size: 0= Normal to Room Light Bone or Joint Aches: 1= Mild Discomfort Runny Nose/ Eye Tearin= None GI Upset > 30mins: 0= None Tremor Observation of Outstretched Hands: 0= None Yawning Observation: 1= 1-2x During Session Anxiety or Irritability: 2=Irritable/Anxious Goose Flesh Skin: 0=Smooth Skin COWS Score: 5 BHS Progress Note (SOAP) Subjective: Anxious, Restless, Body Aches (Mild). Objective: PATIENT A & O X 3, OBSERVED AMBULATING ON DETOX UNIT UNASSISTED. IN NO ACUTE DISTRESS. 05/09/19 16:35 Vital Signs Temperature 98.7 F 05/09/19 13:27 Pulse Rate 66 05/09/19 13:27 Respiratory Rate 18 05/09/19 13:27 Blood Pressure 105/69 05/09/19 13:27 O2 Sat by Pulse Oximetry (%) Laboratory Tests 05/07/19 05/07/19 05/07/19 08:00 08:00 08:00 WBC 4.8 RBC 4.34 Hgb 13.1 Hct 38.7 MCV 89.1 MCH 30.3 MCHC 34.0 RDW 17.6 H Plt Count 121 L MPV 9.3 Sodium 140 Potassium 4.3 Chloride 105 Carbon Dioxide 30 Anion Gap 5 L BUN 22.4 H Creatinine 1.1 Est GFR (CKD-EPI)AfAm 87.74 Est GFR (CKD-EPI)NonAf 75.70 Random Glucose 81 Calcium 8.3 L Total Bilirubin 0.2 AST 40 H ALT 28 Alkaline Phosphatase 85 Total Protein 5.9 L Albumin 3.0 L RPR Titer Nonreactive LABS NOTED. Assessment: 05/09/19 16:35 WITHDRAWAL SYMPTOMS. Plan: CONTINUE DETOX. PATIENT REPORTS THAT CURRENT WITHDRAWAL / DETOX SYMPTOMS ARE MILD IN DEGREE AND THAT HE IS TOLERATING THEM WELL. AT PATIENT'S REQUEST, CURRENT DETOX MEDICATION REGIMEN MODIFIED SO THAT PATIENT MAY BE DISCHARGED TOMORROW, 05/10/2019, SO THAT HE MAY RETURN HOME TO ATTEND TO PERSONAL ISSUES. PATIENT WILL THEN PROCEED ON TO REHAB ON 05/11/2019, FOR AFTERCARE.
[2019-05-09] MEDS: MAG HYDROX/AL HYDROX/SIMETH 30 ML UNIT-DOSE CUP PO PRN (19:18)
[2019-05-09] MEDS: MELATONIN 5 MG TABLETS PO PRN (21:38)
[2019-05-09] MEDS: THIAMINE HCL 100 MG TABLET (FP) PO SCH (21:38)
[2019-05-10] MEDS: FAMOTIDINE 20 MG TABLET PO PRN (00:30)
[2019-05-10] MEDS: METHOCARBAMOL 500 MG TABLET PO PRN ×2 (00:31→08:28)
[2019-05-10] MEDS ORDERED: METHADONE HCL 10 MG TABLET (FOR DETOX USE ONLY) PO ONE ×2 (06:00→10:00)
[2019-05-10 09:02] VITALS: BP 111/70; PULSE 77; TEMP 98.5
[2019-05-10] MEDS: PRENATAL VITAMINS W/ FOLIC ACID TABLET (FP) PO SCH (10:38)
--- NOTE | 2019-05-10 12:30 | DS ---
[facility] Detox Discharge Summary Admission Date: 05/06/19 Discharge Date: 05/10/19 - History Present History: Opioid Dependence Additional Comments: did well with methadone detox regimen no complication through out the detox stay alert oriented x 3 cardiac S1S2 regular rate rhythm respiratory clear lung bilaterally on auscultation extremities full range of motion - Physical Exam Results Vital Signs: opiate withdrawal sx Vital Signs Temperature 98.5 F 05/10/19 09:01 Pulse Rate 77 05/10/19 09:01 Respiratory Rate 18 05/10/19 09:01 Blood Pressure 111/70 05/10/19 09:01 O2 Sat by Pulse Oximetry (%) Laboratory Last Values WBC 4.8 K/mm3 (4.0-10.0) 05/07/19 08:00 RBC 4.34 M/mm3 (4.00-5.60) 05/07/19 08:00 Hgb 13.1 GM/dL (11.7-16.9) 05/07/19 08:00 Hct 38.7 % (35.4-49) 05/07/19 08:00 MCV 89.1 fl (80-96) 05/07/19 08:00 MCH 30.3 pg (25.7-33.7) 05/07/19 08:00 MCHC 34.0 g/dl (32.0-35.9) 05/07/19 08:00 RDW 17.6 % (11.9-15.9) H 05/07/19 08:00 Plt Count 121 K/MM3 (134-434) L 05/07/19 08:00 MPV 9.3 fl (7.5-11.1) 05/07/19 08:00 Sodium 140 mmol/L (136-145) 05/07/19 08:00 Potassium 4.3 mmol/L (3.5-5.1) 05/07/19 08:00 Chloride 105 mmol/L (98-107) 05/07/19 08:00 Carbon Dioxide 30 mmol/L (21-32) 05/07/19 08:00 Anion Gap 5 MMOL/L (8-16) L 05/07/19 08:00 BUN 22.4 mg/dL (7-18) H 05/07/19 08:00 Creatinine 1.1 mg/dL (0.55-1.3) 05/07/19 08:00 Est GFR (CKD-EPI)AfAm 87.74 05/07/19 08:00 Est GFR (CKD-EPI)NonAf 75.70 05/07/19 08:00 Random Glucose 81 mg/dL (74-106) 05/07/19 08:00 Calcium 8.3 mg/dL (8.5-10.1) L 05/07/19 08:00 Total Bilirubin 0.2 mg/dL (0.2-1) 05/07/19 08:00 AST 40 U/L (15-37) H 05/07/19 08:00 ALT 28 U/L (13-61) 05/07/19 08:00 Alkaline Phosphatase 85 U/L (45-117) 05/07/19 08:00 Total Protein 5.9 g/dl (6.4-8.2) L 05/07/19 08:00 Albumin 3.0 g/dl (3.4-5.0) L 05/07/19 08:00 RPR Titer Nonreactive (NONREACTIVE) 05/07/19 08:00 lab noted Pertinent Admission Physical Exam Findings: opiate withdrawal sx - Treatment Hospital Course: Detox Protocol Followed, Detoxed Safely, Responded well, Discharged Condition Good, Rehab Referral Accepted Patient has Accepted a Rehab Referral to: [facility] - Medication Discharge Medications: Ambulatory Orders NK [No Known Home Medication] 02/09/19 - Diagnosis (1) Asthma Status: Chronic Qualifiers: Asthma severity: mild Asthma persistence: intermittent Asthma complication type: with status asthmaticus Qualified Code(s): J45.22 - Mild intermittent asthma with status asthmaticus (2) HIV (human immunodeficiency virus infection) Status: Chronic Qualifiers: HIV symptom status: asymptomatic Qualified Code(s): Z21 - Asymptomatic human immunodeficiency virus [HIV] infection status (3) Nicotine dependence Status: Acute Qualifiers: Nicotine product type: cigarettes Substance use status: in withdrawal Qualified Code(s): F17.213 - Nicotine dependence, cigarettes, with withdrawal (4) Opioid dependence with withdrawal Status: Acute - AMA Did Patient Leave Against Medical Advice: No COWS (PN) - Opiate Withdrawal Resting Pulse: 0= [place] 80 or Below Sweatin= Chills/Flushing Restless Observation: 0= Sits Still Pupil Size: 0= Normal to Room Light Bone or Joint Aches: 0= None Runny Nose/ Eye Tearin= None GI Upset > 30mins: 0= None Tremor Observation of Outstretched Hands: 1= Tremor [place], Not Seen Yawning Observation: 1= 1-2x During Session Anxiety or Irritability: 0= None Goose Flesh Skin: 0=Smooth Skin COWS Score: 3
[2019-05-11] MEDS ORDERED: METHADONE HCL 5 MG TABLET (FOR DETOX USE ONLY) PO ONE (06:00)
== END 2019-05-10 08:45 | disposition home or self-care (01) | DRG 773 ==
LOC: YASAS 08:41 → Y3N 10:06
PROVIDERS: ADMIT Allergy & Immunology; ATTEND Allergy & Immunology
PROC: HZ2ZZZZ Detoxification Services for Substance Abuse Treatment (ICD-10-PCS; principal; 2019-05-06)
DX: F11.23 Opioid dependence with withdrawal (principal); F10.20 Alcohol dependence, uncomplicated; F14.10 Cocaine abuse, uncomplicated; F12.20 Cannabis dependence, uncomplicated; F17.210 Nicotine dependence, cigarettes, uncomplicated; Z21 Asymptomatic human immunodeficiency virus [HIV] infection status; J45.22 Mild intermittent asthma with status asthmaticus; D69.6 Thrombocytopenia, unspecified; R74.0 Nonspecific elevation of levels of transaminase and lactic acid dehydrogenase [LDH]
CPT/HCPCS: 36415; 80053; 85027; 86593

== ENCOUNTER 2022-12-02 17:10 | Inpatient (IN) | payer OTHER ==
[2022-12-02 17:44] VITALS: BMI 26.4
[2022-12-02] MEDS ORDERED: IBUPROFEN 400 MG TABLET (FP) PO PRN (20:28)
[2022-12-02] MEDS ORDERED: MAG HYDROX/AL HYDROX/SIMETH 30 ML UNIT-DOSE CUP PO PRN (20:28)
[2022-12-02] MEDS ORDERED: BENZOCAINE/MENTHOL (CHLORASEPTIC ) LOZENGE MM PRN (20:28)
[2022-12-02] MEDS ORDERED: MELATONIN 5 MG TABLETS PO PRN (20:28)
[2022-12-02] MEDS ORDERED: BENZONATATE 200 MG CAPSULE PO PRN (20:28)
[2022-12-02] MEDS ORDERED: ONDANSETRON *ODT* 4 MG TABLET SL PRN (20:28)
[2022-12-02] MEDS ORDERED: NICOTINE POLACRILEX 2 MG GUM BUC PRN (20:28)
[2022-12-02] MEDS ORDERED: BISMUTH SUBSALICYLATE 524 MG/30 ML PO PRN (20:28)
[2022-12-02] MEDS ORDERED: P-EPHED 60MG/TRIPROLIDI 2.5MG TABLET PO PRN (20:28)
[2022-12-02] MEDS ORDERED: POLYETHYLENE GLYCOL (HEALTHYLAX) 3350 17 GM PACKET PO PRN (20:28)
[2022-12-02] MEDS ORDERED: DICYCLOMINE HCL 10 MG CAPSULE PO PRN (20:28)
[2022-12-02] MEDS ORDERED: LOPERAMIDE HCL 2 MG CAPSULE PO PRN (20:28)
[2022-12-02] MEDS ORDERED: ACETAMINOPHEN 325 MG TABLET (FP) PO PRN ×2 (20:28)
[2022-12-02] MEDS ORDERED: NALOXONE HCL (KLOXXADO) 8 MG SPRAY NS PRN (20:28)
[2022-12-02] MEDS ORDERED: NALOXONE HCL 0.4 MG/ML VIAL IM PRN (20:28)
[2022-12-02] MEDS ORDERED: guaiFENesin 600 MG TABLET.ER (FP) PO PRN (20:28)
[2022-12-02] MEDS ORDERED: MAGNESIUM HYDROX 2400MG/30ML ORAL SUSPENSION 30 ML CUP PO PRN (20:28)
[2022-12-02] MEDS: THIAMINE HCL 100 MG TABLET (FP) PO SCH (22:24)
[2022-12-02] MEDS: diazePAM 5 MG TABLET PO SCH (22:25)
[2022-12-03] MEDS: IBUPROFEN 600 MG TABLET (FP) PO PRN ×2 (04:04→22:13)
[2022-12-03] MEDS: diazePAM 5 MG TABLET PO SCH ×4 (04:04→22:13)
[2022-12-03] MEDS: PRENATAL VITAMINS W/ FOLIC ACID TABLET (FP) PO SCH (10:24)
[2022-12-03 13:34] LABS: HEMATOCRIT 37.6 % (35.4-49); HEMOGLOBIN 13.3 GM/dL (11.7-16.9); MCH 31.9 pg (25.7-33.7); MCHC 35.4 g/dl (32.0-35.9); MEAN CELL VOLUME 90.1 fl (80-96); MEAN PLT VOLUME 8.9 fl (7.5-11.1); PLATELET COUNT 134 10^3/uL (134-434); RBC 4.18 M/mm3 (4.00-5.60); RDW 17.5 % (11.9-15.9); WHITE BLOOD COUNT 5.7 K/mm3 (4.0-10.0)
[2022-12-03 13:43] LABS: POTASSIUM 4.2 mmol/L (3.5-5.1)
[2022-12-03 13:46] LABS: CALCIUM 9.4 mg/dL (8.5-10.1)
[2022-12-03 13:48] LABS: ALBUMIN 3.1 g/dl (3.4-5.0); BLOOD UREA NITROGEN 28.4 mg/dL (7-18)
[2022-12-03 13:52] LABS: BILIRUBIN,TOTAL 0.5 mg/dL (0.2-1); TOT PROT 6.2 g/dl (6.4-8.2)
[2022-12-03] MEDS: THIAMINE HCL 100 MG TABLET (FP) PO SCH (22:13)
[2022-12-04] MEDS: diazePAM 5 MG TABLET PO SCH ×3 (05:57→22:20)
[2022-12-04] MEDS: PRENATAL VITAMINS W/ FOLIC ACID TABLET (FP) PO SCH (10:22)
[2022-12-04] MEDS: diazePAM 5 MG TABLET PO PRN (10:22)
[2022-12-04] MEDS: THIAMINE HCL 100 MG TABLET (FP) PO SCH (22:20)
[2022-12-05] MEDS: diazePAM 5 MG TABLET PO SCH ×2 (05:40→17:55)
[2022-12-05] MEDS: PRENATAL VITAMINS W/ FOLIC ACID TABLET (FP) PO SCH (10:37)
[2022-12-05] MEDS: diazePAM 5 MG TABLET PO PRN (11:06)
[2022-12-05] MEDS: IBUPROFEN 600 MG TABLET (FP) PO PRN (17:54)
[2022-12-05 20:58] VITALS: RESP 18
[2022-12-05] MEDS: THIAMINE HCL 100 MG TABLET (FP) PO SCH (22:54)
[2022-12-05] MEDS ORDERED: diazePAM 5 MG TABLET PO ONE (23:13)
[2022-12-06] MEDS ORDERED: diazePAM 5 MG TABLET PO ONE (06:00)
[2022-12-06 07:15] VITALS: TEMP 97.7
[2022-12-06] MEDS ORDERED: hydrOXYzine PAMOATE 50 MG CAPSULE (FP) PO PRN (09:35)
[2022-12-06] MEDS ORDERED: METHOCARBAMOL 500 MG TABLET PO SCH (10:00)
[2022-12-06] MEDS: PRENATAL VITAMINS W/ FOLIC ACID TABLET (FP) PO SCH (10:29)
[2022-12-06 11:01] VITALS: BP 121/90; PULSE 88
== END 2022-12-06 12:22 | disposition other institution (70) | DRG 774 ==
LOC: YASAS 17:10 → Y3N 21:05
PROVIDERS: ADMIT Allergy & Immunology; ATTEND Surgery
PROC: HZ2ZZZZ Detoxification Services for Substance Abuse Treatment (ICD-10-PCS; principal; 2022-12-02)
DX: F10.230 Alcohol dependence with withdrawal, uncomplicated (principal); F14.20 Cocaine dependence, uncomplicated; F15.20 Other stimulant dependence, uncomplicated; F12.20 Cannabis dependence, uncomplicated; F17.210 Nicotine dependence, cigarettes, uncomplicated; F32.A Depression, unspecified; Z21 Asymptomatic human immunodeficiency virus [HIV] infection status
CPT/HCPCS: 36415; 71045-TC-FY; 80053; 85027; 86780; C9803-CS; U0003; U0005

== ENCOUNTER 2022-12-18 11:36 | Inpatient (IN) | payer OTHER ==
[2022-12-18 11:58] VITALS: BMI 26.2
[2022-12-18] MEDS ORDERED: NICOTINE 10 MG CARTRIDGE (INHALER) IH PRN (12:43)
[2022-12-18] MEDS ORDERED: IBUPROFEN 400 MG TABLET (FP) PO PRN (12:43)
[2022-12-18] MEDS ORDERED: NALOXONE HCL (KLOXXADO) 8 MG SPRAY NS PRN (12:43)
[2022-12-18] MEDS ORDERED: MAGNESIUM HYDROX 2400MG/30ML ORAL SUSPENSION 30 ML CUP PO PRN (12:43)
[2022-12-18] MEDS ORDERED: ACETAMINOPHEN 325 MG TABLET (FP) PO PRN (12:43)
[2022-12-18] MEDS ORDERED: POLYETHYLENE GLYCOL (HEALTHYLAX) 3350 17 GM PACKET PO PRN (12:43)
[2022-12-18] MEDS ORDERED: methaDONE HCL 10 MG TABLET (FOR DETOX USE ONLY) PO ONE (12:43)
[2022-12-18] MEDS ORDERED: NALOXONE HCL 0.4 MG/ML VIAL IM PRN (12:43)
[2022-12-18] MEDS ORDERED: LOPERAMIDE HCL 2 MG CAPSULE PO PRN (12:43)
[2022-12-18] MEDS ORDERED: guaiFENesin 600 MG TABLET.ER (FP) PO PRN (12:43)
[2022-12-18] MEDS ORDERED: IBUPROFEN 600 MG TABLET (FP) PO PRN (12:43)
[2022-12-18] MEDS ORDERED: BENZOCAINE/MENTHOL (CHLORASEPTIC ) LOZENGE MM PRN (12:43)
[2022-12-18] MEDS ORDERED: DICYCLOMINE HCL 10 MG CAPSULE PO PRN (12:43)
[2022-12-18] MEDS ORDERED: MAG HYDROX/AL HYDROX/SIMETH 30 ML UNIT-DOSE CUP PO PRN (12:43)
[2022-12-18] MEDS ORDERED: BENZONATATE 200 MG CAPSULE PO PRN (12:43)
[2022-12-18] MEDS ORDERED: METHOCARBAMOL 500 MG TABLET PO PRN (12:43)
[2022-12-18] MEDS ORDERED: BISMUTH SUBSALICYLATE 524 MG/30 ML PO PRN (12:43)
[2022-12-18] MEDS ORDERED: ONDANSETRON *ODT* 4 MG TABLET SL PRN (12:43)
[2022-12-18] MEDS: chlordiazePOXIDE HCL 25 MG CAPSULE PO PRN (13:39)
[2022-12-18] MEDS: chlordiazePOXIDE HCL 25 MG CAPSULE PO SCH ×2 (18:03→22:21)
[2022-12-18] MEDS: THIAMINE HCL 100 MG TABLET (FP) PO SCH (22:20)
[2022-12-18] MEDS: MELATONIN 5 MG TABLETS PO SCH (22:21)
[2022-12-19] MEDS: chlordiazePOXIDE HCL 25 MG CAPSULE PO SCH ×4 (05:39→22:15)
[2022-12-19] MEDS: PRENATAL VITAMINS W/ FOLIC ACID TABLET (FP) PO SCH (10:24)
[2022-12-19] MEDS: ABACAVIR/DOLUTEGRAVIR/LAMIVUDI (TRIUMEQ) TABLET PO SCH (10:26)
[2022-12-19] MEDS: NICOTINE 21 MG/24 HOURS TOPICAL PATCH TD SCH (10:28)
[2022-12-19 11:27] LABS: HEMATOCRIT 40.5 % (35.4-49); HEMOGLOBIN 13.9 GM/dL (11.7-16.9); MCH 30.9 pg (25.7-33.7); MCHC 34.4 g/dl (32.0-35.9); MEAN CELL VOLUME 89.7 fl (80-96); MEAN PLT VOLUME 8.9 fl (7.5-11.1); PLATELET COUNT 130 10^3/uL (134-434); RBC 4.51 M/mm3 (4.00-5.60); RDW 16.6 % (11.9-15.9); WHITE BLOOD COUNT 4.6 K/mm3 (4.0-10.0)
[2022-12-19 11:33] LABS: POTASSIUM 4.4 mmol/L (3.5-5.1)
[2022-12-19 11:35] LABS: CALCIUM 9.1 mg/dL (8.5-10.1)
[2022-12-19 11:36] LABS: ALBUMIN 3.2 g/dl (3.4-5.0); BLOOD UREA NITROGEN 20.7 mg/dL (7-18)
[2022-12-19 11:38] LABS: CREATININE 1.1 mg/dL (0.55-1.3)
[2022-12-19 11:40] LABS: BILIRUBIN,TOTAL 0.2 mg/dL (0.2-1); TOT PROT 6.6 g/dl (6.4-8.2)
[2022-12-19] MEDS: THIAMINE HCL 100 MG TABLET (FP) PO SCH (22:15)
[2022-12-19] MEDS: MELATONIN 5 MG TABLETS PO SCH (22:15)
[2022-12-20] MEDS: chlordiazePOXIDE HCL 25 MG CAPSULE PO SCH ×4 (05:20→22:38)
[2022-12-20] MEDS ORDERED: methaDONE HCL 10 MG TABLET (FOR DETOX USE ONLY) PO ONE (10:00)
[2022-12-20] MEDS: NICOTINE 21 MG/24 HOURS TOPICAL PATCH TD SCH (10:07)
[2022-12-20] MEDS: PRENATAL VITAMINS W/ FOLIC ACID TABLET (FP) PO SCH (10:08)
[2022-12-20] MEDS: ABACAVIR/DOLUTEGRAVIR/LAMIVUDI (TRIUMEQ) TABLET PO SCH (10:08)
[2022-12-20] MEDS: chlordiazePOXIDE HCL 25 MG CAPSULE PO PRN (13:55)
[2022-12-20] MEDS: hydrOXYzine PAMOATE 25 MG CAPSULE (FP) PO PRN ×2 (13:55→22:37)
[2022-12-20] MEDS: THIAMINE HCL 100 MG TABLET (FP) PO SCH (22:35)
[2022-12-20] MEDS: METHOCARBAMOL 500 MG TABLET PO PRN (22:35)
[2022-12-20] MEDS: MELATONIN 5 MG TABLETS PO SCH (22:35)
[2022-12-21] MEDS ORDERED: chlordiazePOXIDE HCL 10 MG CAPSULE PO PRN
[2022-12-21] MEDS: chlordiazePOXIDE HCL 10 MG CAPSULE PO SCH ×4 (05:18→22:37)
[2022-12-21] MEDS: NICOTINE 21 MG/24 HOURS TOPICAL PATCH TD SCH (10:26)
[2022-12-21] MEDS: ABACAVIR/DOLUTEGRAVIR/LAMIVUDI (TRIUMEQ) TABLET PO SCH (10:26)
[2022-12-21] MEDS: PRENATAL VITAMINS W/ FOLIC ACID TABLET (FP) PO SCH (10:26)
[2022-12-21] MEDS: METHOCARBAMOL 500 MG TABLET PO PRN (21:01)
[2022-12-21] MEDS: THIAMINE HCL 100 MG TABLET (FP) PO SCH (21:02)
[2022-12-21] MEDS: hydrOXYzine PAMOATE 25 MG CAPSULE (FP) PO PRN (21:02)
[2022-12-21] MEDS: MELATONIN 5 MG TABLETS PO SCH (21:03)
[2022-12-22] MEDS: chlordiazePOXIDE HCL 10 MG CAPSULE PO SCH ×2 (05:37→17:53)
[2022-12-22] MEDS ORDERED: methaDONE HCL 10 MG TABLET (FOR DETOX USE ONLY) PO ONE (10:00)
[2022-12-22] MEDS: PRENATAL VITAMINS W/ FOLIC ACID TABLET (FP) PO SCH (10:17)
[2022-12-22] MEDS: ABACAVIR/DOLUTEGRAVIR/LAMIVUDI (TRIUMEQ) TABLET PO SCH (10:17)
[2022-12-22] MEDS: NICOTINE 21 MG/24 HOURS TOPICAL PATCH TD SCH (10:18)
[2022-12-22] MEDS: hydrOXYzine PAMOATE 25 MG CAPSULE (FP) PO PRN (21:38)
[2022-12-22] MEDS: METHOCARBAMOL 500 MG TABLET PO PRN (21:38)
[2022-12-22] MEDS: MELATONIN 5 MG TABLETS PO SCH (21:38)
[2022-12-22] MEDS: THIAMINE HCL 100 MG TABLET (FP) PO SCH (21:38)
[2022-12-23] MEDS ORDERED: chlordiazePOXIDE HCL 10 MG CAPSULE PO ONE (05:00)
[2022-12-23 09:33] VITALS: BP 101/69; PULSE 70; RESP 18; TEMP 98.6
[2022-12-23] MEDS: PRENATAL VITAMINS W/ FOLIC ACID TABLET (FP) PO SCH (10:13)
[2022-12-23] MEDS: NICOTINE 21 MG/24 HOURS TOPICAL PATCH TD SCH (10:13)
[2022-12-23] MEDS: ABACAVIR/DOLUTEGRAVIR/LAMIVUDI (TRIUMEQ) TABLET PO SCH (10:13)
== END 2022-12-23 11:58 | disposition other institution (70) | DRG 773 ==
LOC: YASAS 11:36 → Y3N 12:31
PROVIDERS: ADMIT Allergy & Immunology; ATTEND Psychiatry & Neurology Pain Medicine
PROC: HZ2ZZZZ Detoxification Services for Substance Abuse Treatment (ICD-10-PCS; principal; 2022-12-18)
DX: F11.23 Opioid dependence with withdrawal (principal); F10.230 Alcohol dependence with withdrawal, uncomplicated; F17.210 Nicotine dependence, cigarettes, uncomplicated; B20 Human immunodeficiency virus [HIV] disease; E86.0 Dehydration; G47.00 Insomnia, unspecified; I95.9 Hypotension, unspecified; H54.62 Unqualified visual loss, left eye, normal vision right eye; M21.332 Wrist drop, left wrist; Z86.19 Personal history of other infectious and parasitic diseases; Z86.69 Personal history of other diseases of the nervous system and sense organs
CPT/HCPCS: 36415; 80053; 85027; 86780; 87635; 87811; C9803-CS; U0003; U0005

== ENCOUNTER 2022-12-23 12:07 | Inpatient (IN) | payer OTHER ==
[2022-12-23 12:42] VITALS: BP 92/69; PULSE 81; RESP 15; TEMP 97.1
== END 2022-12-23 12:39 | DRG 861 ==
LOC: YASAS 12:07 → Y3E 12:39 → UNDOADMIN 12:39
PROVIDERS: ADMIT Allergy & Immunology; ATTEND Psychiatry & Neurology Pain Medicine
DX: Z53.29 Procedure and treatment not carried out because of patient's decision for other reasons (principal)

== ENCOUNTER 2023-05-29 16:56 | Inpatient (IN) | payer OTHER ==
[2023-05-29 20:07] VITALS: BMI 24.5
[2023-05-29] MEDS ORDERED: chlordiazePOXIDE HCL 25 MG CAPSULE PO PRN (21:37)
[2023-05-29] MEDS ORDERED: ONDANSETRON *ODT* 4 MG TABLET SL PRN (21:37)
[2023-05-29] MEDS ORDERED: LOPERAMIDE HCL 2 MG CAPSULE PO PRN (21:37)
[2023-05-29] MEDS ORDERED: NICOTINE POLACRILEX 2 MG GUM BUC PRN (21:37)
[2023-05-29] MEDS ORDERED: IBUPROFEN 600 MG TABLET (FP) PO PRN (21:37)
[2023-05-29] MEDS ORDERED: MAGNESIUM HYDROX 2400MG/30ML ORAL SUSPENSION 30 ML CUP PO PRN (21:37)
[2023-05-29] MEDS ORDERED: DICYCLOMINE HCL 10 MG CAPSULE PO PRN (21:37)
[2023-05-29] MEDS ORDERED: NALOXONE HCL (KLOXXADO) 8 MG SPRAY NS PRN (21:37)
[2023-05-29] MEDS ORDERED: IBUPROFEN 400 MG TABLET (FP) PO PRN (21:37)
[2023-05-29] MEDS ORDERED: NALOXONE HCL 0.4 MG/ML VIAL IM PRN (21:37)
[2023-05-29] MEDS ORDERED: BENZOCAINE/MENTHOL (CHLORASEPTIC ) LOZENGE MM PRN (21:37)
[2023-05-29] MEDS ORDERED: guaiFENesin 600 MG TABLET.ER (FP) PO PRN (21:37)
[2023-05-29] MEDS ORDERED: METHOCARBAMOL 500 MG TABLET PO PRN (21:37)
[2023-05-29] MEDS ORDERED: MAG HYDROX/AL HYDROX/SIMETH 30 ML UNIT-DOSE CUP PO PRN (21:37)
[2023-05-29] MEDS ORDERED: POLYETHYLENE GLYCOL (HEALTHYLAX) 3350 17 GM PACKET PO PRN (21:37)
[2023-05-29] MEDS ORDERED: BISMUTH SUBSALICYLATE 524 MG/30 ML PO PRN (21:37)
[2023-05-29] MEDS ORDERED: ACETAMINOPHEN 325 MG TABLET (FP) PO PRN (21:37)
[2023-05-29] MEDS ORDERED: BENZONATATE 200 MG CAPSULE PO PRN (21:37)
[2023-05-29] MEDS ORDERED: chlordiazePOXIDE HCL 25 MG CAPSULE ONE (23:52)
[2023-05-29] MEDS ORDERED: MELATONIN 5 MG TABLETS ONE (23:52)
[2023-05-29] MEDS: chlordiazePOXIDE HCL 25 MG CAPSULE PO SCH (23:54)
[2023-05-29] MEDS: MELATONIN 5 MG TABLETS PO SCH (23:56)
[2023-05-29] MEDS: THIAMINE HCL 100 MG TABLET (FP) PO SCH (23:56)
[2023-05-30] MEDS ORDERED: hydrOXYzine PAMOATE 25 MG CAPSULE (FP) PO ONE (00:11)
[2023-05-30] MEDS: hydrOXYzine PAMOATE 25 MG CAPSULE (FP) PO PRN (00:14)
[2023-05-30] MEDS: chlordiazePOXIDE HCL 25 MG CAPSULE PO SCH ×4 (05:00→22:35)
[2023-05-30] MEDS: PRENATAL VITAMINS W/ FOLIC ACID TABLET (FP) PO SCH (10:56)
[2023-05-30] MEDS: NICOTINE 14 MG/24 HOURS TOPICAL PATCH TD SCH (10:57)
[2023-05-30 11:34] LABS: CHLORIDE 108 mmol/L (98-107); POTASSIUM 3.8 mmol/L (3.5-5.1); SODIUM 141 mmol/L (136-145)
[2023-05-30 11:37] LABS: ALBUMIN 2.9 g/dl (3.4-5.0); ANION GAP 8 mmol/L (4-13); BLOOD UREA NITROGEN 23.5 mg/dL (7-18); CALCIUM 8.8 mg/dL (8.5-10.1); CO2 25 mmol/L (21-32); GLUCOSE,RANDOM 86 mg/dL (74-106)
[2023-05-30 11:39] LABS: HEMATOCRIT 38.9 % (35.4-49); HEMOGLOBIN 13.4 GM/dL (11.7-16.9); MCH 30.5 pg (25.7-33.7); MCHC 34.4 g/dl (32.0-35.9); MEAN CELL VOLUME 88.6 fl (80-96); MEAN PLT VOLUME 8.5 fl (7.5-11.1); PLATELET COUNT 154 10^3/uL (134-434); RBC 4.39 M/mm3 (4.00-5.60); RDW 16.6 % (11.9-15.9); WHITE BLOOD COUNT 5.7 K/mm3 (4.0-10.0)
[2023-05-30 11:40] LABS: CREATININE 1.1 mg/dL (0.55-1.3); SGOT/AST 20 U/L (15-37); SGPT/ALT 19 U/L (13-61)
[2023-05-30 11:42] LABS: BILIRUBIN,TOTAL 0.5 mg/dL (0.2-1)
[2023-05-30 11:43] LABS: ALK PHOS 82 U/L (45-117)
[2023-05-30] MEDS: ABACAVIR/DOLUTEGRAVIR/LAMIVUDI (TRIUMEQ) TABLET PO SCH (14:15)
[2023-05-30] MEDS: THIAMINE HCL 100 MG TABLET (FP) PO SCH (22:35)
[2023-05-30] MEDS: MELATONIN 5 MG TABLETS PO SCH (22:35)
[2023-05-31] MEDS: chlordiazePOXIDE HCL 25 MG CAPSULE PO SCH ×5 (06:00→23:19)
[2023-05-31] MEDS: THIAMINE HCL 100 MG TABLET (FP) PO SCH ×2 (10:30→23:19)
[2023-05-31] MEDS: NICOTINE 14 MG/24 HOURS TOPICAL PATCH TD SCH (10:53)
[2023-05-31] MEDS: ABACAVIR/DOLUTEGRAVIR/LAMIVUDI (TRIUMEQ) TABLET PO SCH (10:53)
[2023-05-31] MEDS: PRENATAL VITAMINS W/ FOLIC ACID TABLET (FP) PO SCH (10:53)
[2023-05-31] MEDS: MELATONIN 5 MG TABLETS PO SCH ×2 (22:30→23:19)
[2023-06-01] MEDS ORDERED: chlordiazePOXIDE HCL 10 MG CAPSULE PO PRN
[2023-06-01] MEDS: chlordiazePOXIDE HCL 10 MG CAPSULE PO SCH ×5 (05:55→23:10)
[2023-06-01] MEDS: ABACAVIR/DOLUTEGRAVIR/LAMIVUDI (TRIUMEQ) TABLET PO SCH (10:33)
[2023-06-01] MEDS: NICOTINE 14 MG/24 HOURS TOPICAL PATCH TD SCH (10:33)
[2023-06-01] MEDS: PRENATAL VITAMINS W/ FOLIC ACID TABLET (FP) PO SCH (10:33)
[2023-06-01] MEDS: hydrOXYzine PAMOATE 25 MG CAPSULE (FP) PO PRN (17:38)
[2023-06-01] MEDS: MELATONIN 5 MG TABLETS PO SCH (23:10)
[2023-06-01] MEDS: THIAMINE HCL 100 MG TABLET (FP) PO SCH (23:10)
[2023-06-02] MEDS: chlordiazePOXIDE HCL 10 MG CAPSULE PO SCH ×2 (05:31→17:41)
[2023-06-02] MEDS: NICOTINE 14 MG/24 HOURS TOPICAL PATCH TD SCH (10:13)
[2023-06-02] MEDS: PRENATAL VITAMINS W/ FOLIC ACID TABLET (FP) PO SCH (10:13)
[2023-06-02] MEDS: ABACAVIR/DOLUTEGRAVIR/LAMIVUDI (TRIUMEQ) TABLET PO SCH (10:13)
[2023-06-02] MEDS: hydrOXYzine PAMOATE 25 MG CAPSULE (FP) PO PRN (17:44)
[2023-06-02] MEDS: MELATONIN 5 MG TABLETS PO SCH (22:34)
[2023-06-02] MEDS: THIAMINE HCL 100 MG TABLET (FP) PO SCH (22:34)
[2023-06-03] MEDS ORDERED: chlordiazePOXIDE HCL 10 MG CAPSULE PO ONE (05:00)
[2023-06-03 09:06] VITALS: BP 99/56; PULSE 73; RESP 18; TEMP 97.7
[2023-06-03] MEDS: PRENATAL VITAMINS W/ FOLIC ACID TABLET (FP) PO SCH (09:16)
[2023-06-03] MEDS: NICOTINE 14 MG/24 HOURS TOPICAL PATCH TD SCH (09:16)
[2023-06-03] MEDS: ABACAVIR/DOLUTEGRAVIR/LAMIVUDI (TRIUMEQ) TABLET PO SCH (09:16)
== END 2023-06-03 09:30 | disposition home or self-care (01) | DRG 775 ==
LOC: YASAS 16:56 → Y6N 23:40
PROVIDERS: ADMIT Allergy & Immunology; ATTEND Surgery
PROC: HZ2ZZZZ Detoxification Services for Substance Abuse Treatment (ICD-10-PCS; principal; 2023-05-29)
DX: F10.230 Alcohol dependence with withdrawal, uncomplicated (principal); F17.210 Nicotine dependence, cigarettes, uncomplicated; B20 Human immunodeficiency virus [HIV] disease; H54.62 Unqualified visual loss, left eye, normal vision right eye; Z79.899 Other long term (current) drug therapy
CPT/HCPCS: 36415; 80053; 80307; 85027; 86780; 87635

== ENCOUNTER 2023-06-11 20:09 | Inpatient (IN) | payer OTHER ==
[2023-06-11 21:58] VITALS: BMI 25.7
[2023-06-11] MEDS ORDERED: NALOXONE HCL 0.4 MG/ML VIAL IM PRN (22:29)
[2023-06-11] MEDS ORDERED: hydrOXYzine PAMOATE 25 MG CAPSULE (FP) PO PRN (22:29)
[2023-06-11] MEDS ORDERED: NALOXONE HCL (KLOXXADO) 8 MG SPRAY NS PRN (22:29)
[2023-06-11] MEDS ORDERED: BENZONATATE 200 MG CAPSULE PO PRN (22:29)
[2023-06-11] MEDS ORDERED: guaiFENesin 600 MG TABLET.ER (FP) PO PRN (22:29)
[2023-06-11] MEDS ORDERED: POLYETHYLENE GLYCOL (HEALTHYLAX) 3350 17 GM PACKET PO PRN (22:29)
[2023-06-11] MEDS ORDERED: BENZOCAINE/MENTHOL (CHLORASEPTIC ) LOZENGE MM PRN (22:29)
[2023-06-11] MEDS ORDERED: NICOTINE POLACRILEX 2 MG GUM BUC PRN (22:29)
[2023-06-11] MEDS ORDERED: IBUPROFEN 400 MG TABLET (FP) PO PRN (22:29)
[2023-06-11] MEDS ORDERED: ACETAMINOPHEN 325 MG TABLET (FP) PO PRN (22:29)
[2023-06-11] MEDS ORDERED: MAGNESIUM HYDROX 2400MG/30ML ORAL SUSPENSION 30 ML CUP PO PRN (22:29)
[2023-06-11] MEDS ORDERED: ONDANSETRON *ODT* 4 MG TABLET SL PRN (22:29)
[2023-06-11] MEDS ORDERED: DICYCLOMINE HCL 10 MG CAPSULE PO PRN (22:29)
[2023-06-11] MEDS ORDERED: BISMUTH SUBSALICYLATE 524 MG/30 ML PO PRN (22:29)
[2023-06-11] MEDS ORDERED: LOPERAMIDE HCL 2 MG CAPSULE PO PRN (22:29)
[2023-06-11] MEDS ORDERED: MAG HYDROX/AL HYDROX/SIMETH 30 ML UNIT-DOSE CUP PO PRN (22:29)
[2023-06-12] MEDS ORDERED: chlordiazePOXIDE HCL 25 MG CAPSULE PO PRN (06:15)
[2023-06-12] MEDS ORDERED: chlordiazePOXIDE HCL 25 MG CAPSULE ONE (06:35)
[2023-06-12] MEDS: PRENATAL VITAMINS W/ FOLIC ACID TABLET (FP) PO SCH (10:24)
[2023-06-12] MEDS: chlordiazePOXIDE HCL 25 MG CAPSULE PO SCH ×4 (10:26→22:29)
[2023-06-12] MEDS: NICOTINE 21 MG/24 HOURS TOPICAL PATCH TD SCH (10:27)
[2023-06-12] MEDS ORDERED: ALBUTEROL SO4 2.5/IPRATROPIUM 0.5 INH SOL 3 ML VIAL.NEB. NEB ONE (13:00)
[2023-06-12] MEDS: predniSONE 20 MG TABLET (UD) PO SCH (13:11)
[2023-06-12] MEDS ORDERED: ALBUTEROL SO4 2.5/IPRATROPIUM 0.5 INH SOL 3 ML VIAL.NEB. NEB PRN (14:41)
[2023-06-12] MEDS: ABACAVIR/DOLUTEGRAVIR/LAMIVUDI (TRIUMEQ) TABLET PO SCH (15:25)
[2023-06-12 15:32] LABS: HEMATOCRIT 38.2 % (35.4-49); HEMOGLOBIN 12.9 GM/dL (11.7-16.9); MCHC 33.9 g/dl (32.0-35.9); MEAN CELL VOLUME 88.6 fl (80-96); MEAN PLT VOLUME 8.5 fl (7.5-11.1); PLATELET COUNT 155 10^3/uL (134-434); RBC 4.31 M/mm3 (4.00-5.60); WHITE BLOOD COUNT 11.5 K/mm3 (4.0-10.0)
[2023-06-12 15:35] LABS: CHLORIDE 111 mmol/L (98-107); POTASSIUM 3.8 mmol/L (3.5-5.1); SODIUM 139 mmol/L (136-145)
[2023-06-12 15:43] LABS: ALBUMIN 2.8 g/dl (3.4-5.0); ANION GAP 5 mmol/L (4-13); BLOOD UREA NITROGEN 24.4 mg/dL (7-18); CO2 23 mmol/L (21-32); GLUCOSE,RANDOM 97 mg/dL (74-106)
[2023-06-12 15:45] LABS: CREATININE 1.2 mg/dL (0.55-1.3); SGOT/AST 33 U/L (15-37); SGPT/ALT 24 U/L (13-61)
[2023-06-12 15:46] LABS: BILIRUBIN,TOTAL 0.9 mg/dL (0.2-1); TOT PROT 6.1 g/dl (6.4-8.2)
[2023-06-12 15:48] LABS: ALK PHOS 80 U/L (45-117)
[2023-06-12] MEDS: THIAMINE HCL 100 MG TABLET (FP) PO SCH (22:29)
[2023-06-12] MEDS: MELATONIN 5 MG TABLETS PO SCH (22:29)
[2023-06-12] MEDS: METHOCARBAMOL 500 MG TABLET PO PRN (22:29)
[2023-06-13] MEDS: chlordiazePOXIDE HCL 25 MG CAPSULE PO SCH ×4 (05:28→22:41)
[2023-06-13] MEDS: ABACAVIR/DOLUTEGRAVIR/LAMIVUDI (TRIUMEQ) TABLET PO SCH (10:23)
[2023-06-13] MEDS: PRENATAL VITAMINS W/ FOLIC ACID TABLET (FP) PO SCH (10:23)
[2023-06-13] MEDS: predniSONE 20 MG TABLET (UD) PO SCH (10:23)
[2023-06-13] MEDS: NICOTINE 21 MG/24 HOURS TOPICAL PATCH TD SCH (10:26)
[2023-06-13] MEDS: MELATONIN 5 MG TABLETS PO SCH (22:41)
[2023-06-13] MEDS: THIAMINE HCL 100 MG TABLET (FP) PO SCH (22:41)
[2023-06-14] MEDS: chlordiazePOXIDE HCL 25 MG CAPSULE PO SCH ×4 (05:34→22:19)
[2023-06-14] MEDS: PRENATAL VITAMINS W/ FOLIC ACID TABLET (FP) PO SCH (09:19)
[2023-06-14] MEDS: IBUPROFEN 600 MG TABLET (FP) PO PRN (09:19)
[2023-06-14] MEDS: METHOCARBAMOL 500 MG TABLET PO PRN ×2 (09:20→17:28)
[2023-06-14] MEDS: ABACAVIR/DOLUTEGRAVIR/LAMIVUDI (TRIUMEQ) TABLET PO SCH (09:20)
[2023-06-14] MEDS: predniSONE 20 MG TABLET (UD) PO SCH (09:21)
[2023-06-14] MEDS: NICOTINE 21 MG/24 HOURS TOPICAL PATCH TD SCH (09:23)
[2023-06-14] MEDS: guaiFENesin 200 MG/10 ML 10 ML UNIT-DOSE CUPS PO PRN ×2 (10:01→17:28)
[2023-06-14] MEDS: MELATONIN 5 MG TABLETS PO SCH (22:19)
[2023-06-14] MEDS: THIAMINE HCL 100 MG TABLET (FP) PO SCH (22:19)
[2023-06-15] MEDS ORDERED: chlordiazePOXIDE HCL 10 MG CAPSULE PO PRN
[2023-06-15] MEDS: chlordiazePOXIDE HCL 10 MG CAPSULE PO SCH ×4 (05:53→22:27)
[2023-06-15] MEDS: METHOCARBAMOL 500 MG TABLET PO PRN ×2 (05:54→22:28)
[2023-06-15] MEDS: guaiFENesin 200 MG/10 ML 10 ML UNIT-DOSE CUPS PO PRN (05:54)
[2023-06-15] MEDS: IBUPROFEN 600 MG TABLET (FP) PO PRN (08:41)
[2023-06-15] MEDS: ABACAVIR/DOLUTEGRAVIR/LAMIVUDI (TRIUMEQ) TABLET PO SCH (10:50)
[2023-06-15] MEDS: NICOTINE 21 MG/24 HOURS TOPICAL PATCH TD SCH (10:50)
[2023-06-15] MEDS: PRENATAL VITAMINS W/ FOLIC ACID TABLET (FP) PO SCH (10:50)
[2023-06-15] MEDS: predniSONE 20 MG TABLET (UD) PO SCH (10:50)
[2023-06-15] MEDS: ALBUTEROL SO4 2.5/IPRATROPIUM 0.5 INH SOL 3 ML VIAL.NEB. NEB SCH (18:23)
[2023-06-15] MEDS: THIAMINE HCL 100 MG TABLET (FP) PO SCH (22:27)
[2023-06-15] MEDS: MELATONIN 5 MG TABLETS PO SCH (22:27)
[2023-06-16] MEDS: ALBUTEROL SO4 2.5/IPRATROPIUM 0.5 INH SOL 3 ML VIAL.NEB. NEB SCH ×7 (00:07→17:12)
[2023-06-16] MEDS: chlordiazePOXIDE HCL 10 MG CAPSULE PO SCH ×2 (05:35→17:06)
[2023-06-16] MEDS: ABACAVIR/DOLUTEGRAVIR/LAMIVUDI (TRIUMEQ) TABLET PO SCH (10:26)
[2023-06-16] MEDS: predniSONE 20 MG TABLET (UD) PO SCH (10:27)
[2023-06-16] MEDS: PRENATAL VITAMINS W/ FOLIC ACID TABLET (FP) PO SCH (10:27)
[2023-06-16] MEDS: NICOTINE 21 MG/24 HOURS TOPICAL PATCH TD SCH (10:29)
[2023-06-16 13:11] VITALS: RESP 18
[2023-06-16] MEDS: MELATONIN 5 MG TABLETS PO SCH (22:14)
[2023-06-16] MEDS: METHOCARBAMOL 500 MG TABLET PO PRN (22:14)
[2023-06-16] MEDS: THIAMINE HCL 100 MG TABLET (FP) PO SCH (22:15)
[2023-06-17] MEDS ORDERED: chlordiazePOXIDE HCL 10 MG CAPSULE PO ONE (05:00)
[2023-06-17] MEDS: ALBUTEROL SO4 2.5/IPRATROPIUM 0.5 INH SOL 3 ML VIAL.NEB. NEB SCH (06:40)
[2023-06-17 08:56] VITALS: BP 113/76; PULSE 71; TEMP 97.7
[2023-06-17] MEDS: NICOTINE 21 MG/24 HOURS TOPICAL PATCH TD SCH (09:30)
[2023-06-17] MEDS: PRENATAL VITAMINS W/ FOLIC ACID TABLET (FP) PO SCH (09:30)
[2023-06-17] MEDS: ABACAVIR/DOLUTEGRAVIR/LAMIVUDI (TRIUMEQ) TABLET PO SCH (09:30)
== END 2023-06-17 09:26 | disposition other institution (70) | DRG 774 ==
LOC: YASAS 20:09 → Y3N 06-12 06:34
PROVIDERS: ADMIT Allergy & Immunology; ATTEND Allergy & Immunology
PROC: HZ2ZZZZ Detoxification Services for Substance Abuse Treatment (ICD-10-PCS; principal; 2023-06-12)
DX: F10.230 Alcohol dependence with withdrawal, uncomplicated (principal); F14.20 Cocaine dependence, uncomplicated; F12.20 Cannabis dependence, uncomplicated; F17.210 Nicotine dependence, cigarettes, uncomplicated; B20 Human immunodeficiency virus [HIV] disease; J44.1 Chronic obstructive pulmonary disease with (acute) exacerbation; J45.20 Mild intermittent asthma, uncomplicated; H54.62 Unqualified visual loss, left eye, normal vision right eye; R76.11 Nonspecific reaction to tuberculin skin test without active tuberculosis
CPT/HCPCS: 0241U-QW; 36415; 80053; 80307; 85027; 86780; 87635; 87811; 94640

== ENCOUNTER 2023-06-12 00:06 | Emergency (ER) | payer OTHER ==
[2023-06-12 00:17] VITALS: BMI 19.5
[2023-06-12] MEDS ORDERED: ACETAMINOPHEN 1000 MG/100 ML BAG IVPB ONE (00:54)
[2023-06-12] MEDS ORDERED: ACETAMINOPHEN INJECTION 100 ML IVPB ONE (00:56)
[2023-06-12] MEDS ORDERED: chlordiazePOXIDE HCL 25 MG CAPSULE PO ONE (00:59)
[2023-06-12] MEDS ORDERED: SODIUM CHLORIDE 0.9% 500 ML INFUS.BAG IV ONE (00:59)
[2023-06-12] MEDS ORDERED: chlordiazePOXIDE HCL 25 MG CAPSULE ONE (01:46)
[2023-06-12 02:13] LABS: BASO % 0.6 % (0-2.0); EOS % 2.6 % (0-4.5); HEMATOCRIT 41.2 % (35.4-49); HEMOGLOBIN 14.1 GM/dL (11.7-16.9); LYMPH % 18.8 % (8-40); MCH 30.2 pg (25.7-33.7); MCHC 34.2 g/dl (32.0-35.9); MEAN CELL VOLUME 88.3 fl (80-96); MEAN PLT VOLUME 8.4 fl (7.5-11.1); MONO % 5.1 % (3.8-10.2); NEUT % 72.9 % (42.8-82.8); PLATELET COUNT 174 10^3/uL (134-434); RBC 4.66 M/mm3 (4.00-5.60); RDW 16.9 % (11.9-15.9); WHITE BLOOD COUNT 12.5 K/mm3 (4.0-10.0)
[2023-06-12 02:20] LABS: PROTHROMBIN TIME (PATIENT) 11.6 SEC (9.7-13.0)
[2023-06-12 02:22] LABS: ACTIVATED PTT 30.1 SECONDS (25.2-36.5)
[2023-06-12 02:32] LABS: POTASSIUM 3.5 mmol/L (3.5-5.1)
[2023-06-12] MEDS ORDERED: FAMOTIDINE 20 MG TABLET ONE (02:33)
[2023-06-12 02:35] LABS: CALCIUM 8.9 mg/dL (8.5-10.1)
[2023-06-12 02:36] LABS: BLOOD UREA NITROGEN 34.1 mg/dL (7-18)
[2023-06-12 02:39] LABS: CREATININE 1.5 mg/dL (0.55-1.3)
[2023-06-12 02:40] LABS: TOT PROT 7.6 g/dl (6.4-8.2)
[2023-06-12 03:23] LABS: ALBUMIN 3.7 g/dl (3.4-5.0); BILIRUBIN,TOTAL 0.4 mg/dL (0.2-1)
[2023-06-12 03:59] VITALS: BP 109/78; PULSE 84; RESP 18; TEMP 98.3
[2023-06-12 04:29] LABS: POTASSIUM 3.5 mmol/L (3.5-5.1)
[2023-06-12 04:32] LABS: CALCIUM 8.2 mg/dL (8.5-10.1)
[2023-06-12 04:35] LABS: CREATININE 1.4 mg/dL (0.55-1.3)
[2023-06-12 04:37] LABS: BILIRUBIN,TOTAL 0.4 mg/dL (0.2-1); TOT PROT 6.4 g/dl (6.4-8.2)
== END 2023-06-12 05:48 ==
LOC: JER 00:06
PROC: 3E033NZ Introduction of Analgesics, Hypnotics, Sedatives into Peripheral Vein, Percutaneous Approach (ICD-10-PCS; principal; 2023-06-12)
DX: R50.9 Fever, unspecified (principal); R00.0 Tachycardia, unspecified; F10.239 Alcohol dependence with withdrawal, unspecified; Y90.9 Presence of alcohol in blood, level not specified; Z20.822 Contact with and (suspected) exposure to COVID-19
CPT/HCPCS: 0241U-QW; 36415; 71045-TC-FY; 80053; 82550; 82553; 83605; 84484; 85025; 85610; 85730; 86850; 86900; 86901; 87040; 99284-25

== ENCOUNTER 2023-10-02 13:14 | Inpatient (IN) | payer OTHER ==
[2023-10-02 13:57] VITALS: BMI 27.8
[2023-10-02] MEDS ORDERED: LORazepam 1 MG TABLET PO PRN (19:15)
[2023-10-02] MEDS ORDERED: cloNIDine HCL 0.1 MG TABLET PO PRN (19:15)
[2023-10-02] MEDS ORDERED: NALOXONE HCL 0.4 MG/ML VIAL IM PRN (19:16)
[2023-10-02] MEDS ORDERED: NALOXONE HCL (KLOXXADO) 8 MG SPRAY NS PRN (19:16)
[2023-10-02] MEDS ORDERED: MAG HYDROX/AL HYDROX/SIMETH 30 ML UNIT-DOSE CUP PO PRN (19:16)
[2023-10-02] MEDS ORDERED: BENZONATATE 200 MG CAPSULE PO PRN (19:16)
[2023-10-02] MEDS ORDERED: ONDANSETRON *ODT* 4 MG TABLET SL PRN (19:16)
[2023-10-02] MEDS ORDERED: LOPERAMIDE HCL 2 MG CAPSULE PO PRN (19:16)
[2023-10-02] MEDS ORDERED: BISMUTH SUBSALICYLATE 524 MG/30 ML PO PRN (19:16)
[2023-10-02] MEDS ORDERED: POLYETHYLENE GLYCOL (HEALTHYLAX) 3350 17 GM PACKET PO PRN (19:16)
[2023-10-02] MEDS ORDERED: guaiFENesin 600 MG TABLET.ER (FP) PO PRN (19:16)
[2023-10-02] MEDS ORDERED: BENZOCAINE/MENTHOL (CHLORASEPTIC ) LOZENGE MM PRN (19:16)
[2023-10-02] MEDS ORDERED: IBUPROFEN 400 MG TABLET (FP) PO PRN (19:16)
[2023-10-02] MEDS ORDERED: ACETAMINOPHEN 325 MG TABLET (FP) PO PRN (19:16)
[2023-10-02] MEDS ORDERED: DICYCLOMINE HCL 10 MG CAPSULE PO PRN (19:16)
[2023-10-02] MEDS ORDERED: MAGNESIUM HYDROX 2400MG/30ML ORAL SUSPENSION 30 ML CUP PO PRN (19:16)
[2023-10-02] MEDS ORDERED: IBUPROFEN 600 MG TABLET (FP) PO PRN (19:16)
[2023-10-02] MEDS ORDERED: methaDONE HCL 10 MG TABLET (FOR DETOX USE ONLY) ONE (19:45)
[2023-10-02] MEDS: methaDONE HCL 10 MG TABLET (FOR DETOX USE ONLY) PO ONE (19:48)
[2023-10-02] MEDS ORDERED: ALBUTEROL SO4 HFA INHALER IH PRN (20:27)
[2023-10-02] MEDS: MELATONIN 5 MG TABLETS PO SCH (22:29)
[2023-10-02] MEDS: THIAMINE HCL 100 MG TABLET (FP) PO SCH (22:29)
[2023-10-02] MEDS: FAMOTIDINE 20 MG TABLET PO SCH (22:31)
[2023-10-02] MEDS: LORazepam 2 MG TABLET PO SCH (22:31)
[2023-10-03] MEDS: PRENATAL VITAMINS W/ FOLIC ACID TABLET (FP) PO SCH (10:42)
[2023-10-03] MEDS: ABACAVIR/DOLUTEGRAVIR/LAMIVUDI (TRIUMEQ) TABLET PO SCH (10:42)
[2023-10-03 14:40] LABS: CHLORIDE 106 mmol/L (98-107); HEMATOCRIT 35.7 % (35.4-49); HEMOGLOBIN 12.1 GM/dL (11.7-16.9); MCH 30.1 pg (25.7-33.7); MCHC 33.8 g/dl (32.0-35.9); MEAN PLT VOLUME 7.7 fl (7.5-11.1); PLATELET COUNT 189 10^3/uL (134-434); POTASSIUM 4.5 mmol/L (3.5-5.1); RBC 4.01 M/mm3 (4.00-5.60); RDW 17.9 % (11.9-15.9); SODIUM 137 mmol/L (136-145); WHITE BLOOD COUNT 6.1 K/mm3 (4.0-10.0)
[2023-10-03 14:44] LABS: ALBUMIN 2.9 g/dl (3.4-5.0); ANION GAP 3 mmol/L (4-13); BLOOD UREA NITROGEN 19.8 mg/dL (7-18); CALCIUM 8.7 mg/dL (8.5-10.1); CO2 28 mmol/L (21-32); GLUCOSE,RANDOM 87 mg/dL (74-106)
[2023-10-03 14:47] LABS: CREATININE 1.1 mg/dL (0.55-1.3); SGOT/AST 40 U/L (15-37); SGPT/ALT 33 U/L (13-61)
[2023-10-03 14:49] LABS: BILIRUBIN,TOTAL 0.3 mg/dL (0.2-1)
[2023-10-03 14:50] LABS: ALK PHOS 84 U/L (45-117)
[2023-10-03] MEDS: hydrOXYzine PAMOATE 25 MG CAPSULE (FP) PO PRN (17:47)
[2023-10-04] MEDS: LORazepam 1 MG TABLET PO SCH ×2 (05:48→18:20)
[2023-10-04] MEDS: METHOCARBAMOL 500 MG TABLET PO PRN (10:11)
[2023-10-04] MEDS: methaDONE HCL 10 MG TABLET (FOR DETOX USE ONLY) PO ONE (10:12)
[2023-10-05] MEDS ORDERED: LORazepam 0.5 MG TABLET PO PRN
[2023-10-05] MEDS: LORazepam 0.5 MG TABLET PO SCH (05:22)
[2023-10-06] MEDS: LORazepam 0.5 MG TABLET PO ONE (05:40)
[2023-10-06] MEDS: methaDONE HCL 10 MG TABLET (FOR DETOX USE ONLY) PO ONE (09:54)
[2023-10-06] MEDS: LACTULOSE 20 GM/30 ML UDC (FOR ORAL USE ONLY) PO SCH (15:16)
[2023-10-07 06:11] VITALS: TEMP 98
[2023-10-07 09:18] VITALS: BP 97/67; PULSE 76; RESP 16
== END 2023-10-07 10:10 | disposition other institution (70) | DRG 773 ==
LOC: YASAS 13:14 → Y6N 19:22
PROVIDERS: ADMIT Allergy & Immunology; ATTEND Surgery
PROC: HZ2ZZZZ Detoxification Services for Substance Abuse Treatment (ICD-10-PCS; principal; 2023-10-02)
DX: F11.23 Opioid dependence with withdrawal (principal); F10.230 Alcohol dependence with withdrawal, uncomplicated; F17.210 Nicotine dependence, cigarettes, uncomplicated; F41.9 Anxiety disorder, unspecified; F32.A Depression, unspecified; Z21 Asymptomatic human immunodeficiency virus [HIV] infection status; J41.1 Mucopurulent chronic bronchitis; J45.20 Mild intermittent asthma, uncomplicated; H54.62 Unqualified visual loss, left eye, normal vision right eye; R76.11 Nonspecific reaction to tuberculin skin test without active tuberculosis; R79.89 Other specified abnormal findings of blood chemistry; Z28.311 Partially vaccinated for COVID-19
CPT/HCPCS: 36415; 80053; 80305; 80307; 82140; 85027; 86780; 87635; 87811; 93005; 93010

== ENCOUNTER 2023-11-19 08:58 | Inpatient (IN) | payer OTHER ==
[2023-11-19 10:41] VITALS: BMI 27.3
[2023-11-19] MEDS ORDERED: BENZONATATE 200 MG CAPSULE PO PRN (11:15)
[2023-11-19] MEDS ORDERED: guaiFENesin 600 MG TABLET.ER (FP) PO PRN (11:15)
[2023-11-19] MEDS ORDERED: NICOTINE 21 MG/24 HOURS TOPICAL PATCH TD PRN (11:15)
[2023-11-19] MEDS ORDERED: cloNIDine HCL 0.1 MG TABLET PO PRN (11:15)
[2023-11-19] MEDS ORDERED: LOPERAMIDE HCL 2 MG CAPSULE PO PRN (11:15)
[2023-11-19] MEDS ORDERED: NICOTINE POLACRILEX 4 MG LOZENGE BC PRN (11:15)
[2023-11-19] MEDS ORDERED: BISMUTH SUBSALICYLATE 524 MG/30 ML PO PRN (11:15)
[2023-11-19] MEDS ORDERED: NICOTINE POLACRILEX 4 MG GUM BUC PRN (11:15)
[2023-11-19] MEDS ORDERED: MAGNESIUM HYDROX 2400MG/30ML ORAL SUSPENSION 30 ML CUP PO PRN (11:15)
[2023-11-19] MEDS ORDERED: NALOXONE HCL (KLOXXADO) 8 MG SPRAY NS PRN (11:15)
[2023-11-19] MEDS ORDERED: ONDANSETRON *ODT* 4 MG TABLET SL PRN (11:15)
[2023-11-19] MEDS ORDERED: POLYETHYLENE GLYCOL (HEALTHYLAX) 3350 17 GM PACKET PO PRN (11:15)
[2023-11-19] MEDS ORDERED: DICYCLOMINE HCL 10 MG CAPSULE PO PRN (11:15)
[2023-11-19] MEDS ORDERED: NALOXONE HCL 0.4 MG/ML VIAL IM PRN (11:15)
[2023-11-19] MEDS ORDERED: BENZOCAINE/MENTHOL (CHLORASEPTIC ) LOZENGE MM PRN (11:15)
[2023-11-19] MEDS: SULFAMETHOXAZOLE/TRIMETHOPRIM 800MG/160MG D.S. TABLET PO SCH (12:54)
[2023-11-19] MEDS: methaDONE HCL 10 MG TABLET (FOR DETOX USE ONLY) PO ONE (17:52)
[2023-11-19] MEDS: diazePAM 5 MG TABLET PO SCH (17:53)
[2023-11-19] MEDS: ACETAMINOPHEN 325 MG TABLET (FP) PO PRN (20:47)
[2023-11-19] MEDS: MELATONIN 5 MG TABLETS PO SCH (23:06)
[2023-11-19] MEDS: THIAMINE 100 MG TABLET PO SCH (23:06)
[2023-11-19] MEDS: METHOCARBAMOL 500 MG TABLET PO PRN (23:06)
[2023-11-20] MEDS: P-EPHED 60MG/TRIPROLIDI 2.5MG TABLET PO PRN (04:19)
[2023-11-20] MEDS: MAG HYDROX/AL HYDROX/SIMETH 30 ML UNIT-DOSE CUP PO PRN (04:21)
[2023-11-20] MEDS: PRENATAL VITAMINS W/ FOLIC ACID TABLET (FP) PO SCH (10:43)
[2023-11-20 11:05] LABS: POTASSIUM 3.8 mmol/L (3.5-5.1)
[2023-11-20 11:08] LABS: HEMATOCRIT 36.6 % (35.4-49); MCH 29.3 pg (25.7-33.7); MCHC 32.9 g/dl (32.0-35.9); MEAN PLT VOLUME 8.7 fl (7.5-11.1); PLATELET COUNT 134 10^3/uL (134-434); RBC 4.11 M/mm3 (4.00-5.60); RDW 15.8 % (11.9-15.9); WHITE BLOOD COUNT 6.8 K/mm3 (4.0-10.0)
[2023-11-20 11:11] LABS: CALCIUM 8.2 mg/dL (8.5-10.1)
[2023-11-20 11:12] LABS: ALBUMIN 2.7 g/dl (3.4-5.0); BLOOD UREA NITROGEN 14.9 mg/dL (7-18)
[2023-11-20 11:16] LABS: BILIRUBIN,TOTAL 0.5 mg/dL (0.2-1)
[2023-11-20 11:17] LABS: TOT PROT 5.5 g/dl (6.4-8.2)
[2023-11-20] MEDS: LACTULOSE 20 GM/30 ML UDC (FOR ORAL USE ONLY) PO SCH (13:35)
[2023-11-20] MEDS: ABACAVIR/DOLUTEGRAVIR/LAMIVUDI (TRIUMEQ) TABLET PO SCH (14:33)
[2023-11-20] MEDS ORDERED: hydrOXYzine PAMOATE 25 MG CAPSULE (FP) PO PRN (15:52)
[2023-11-20] MEDS: hydrOXYzine PAMOATE 25 MG CAPSULE (FP) PO ONE (15:56)
[2023-11-20] MEDS: SODIUM CHLORIDE NASAL SPRAY 44 ML BOTTLE NS SCH (22:44)
[2023-11-21] MEDS: diazePAM 5 MG TABLET PO SCH (05:41)
[2023-11-21] MEDS: methaDONE HCL 10 MG TABLET (FOR DETOX USE ONLY) PO ONE (09:58)
[2023-11-21] MEDS: NALOXONE (NARCAN) HCL 4 MG/0.1 ML SPRAY NS SCH (13:18)
[2023-11-21] MEDS: diazePAM 5 MG TABLET PO PRN (17:32)
[2023-11-21] MEDS: IBUPROFEN 600 MG TABLET (FP) PO PRN (19:26)
[2023-11-21] MEDS: FAMOTIDINE 20 MG TABLET PO SCH (22:14)
[2023-11-22] MEDS: diazePAM 5 MG TABLET PO SCH (05:34)
[2023-11-22] MEDS: IBUPROFEN 400 MG TABLET (FP) PO PRN (05:37)
[2023-11-22] MEDS: ALBUTEROL SO4 HFA INHALER IH PRN (18:23)
[2023-11-23] MEDS: diazePAM 5 MG TABLET PO ONE (05:21)
[2023-11-23] MEDS: methaDONE HCL 10 MG TABLET (FOR DETOX USE ONLY) PO ONE (09:18)
[2023-11-24 06:47] VITALS: TEMP 97.8
[2023-11-24 08:51] VITALS: BP 146/83; PULSE 79; RESP 19
== END 2023-11-24 09:05 | disposition other institution (70) | DRG 773 ==
LOC: YASAS 08:58 → Y6N 11:56
PROVIDERS: ADMIT Allergy & Immunology; ATTEND Surgery
PROC: HZ2ZZZZ Detoxification Services for Substance Abuse Treatment (ICD-10-PCS; principal; 2023-11-19)
DX: F11.23 Opioid dependence with withdrawal (principal); F10.230 Alcohol dependence with withdrawal, uncomplicated; F14.20 Cocaine dependence, uncomplicated; F12.20 Cannabis dependence, uncomplicated; F17.210 Nicotine dependence, cigarettes, uncomplicated; B20 Human immunodeficiency virus [HIV] disease; J41.1 Mucopurulent chronic bronchitis; J45.20 Mild intermittent asthma, uncomplicated; E72.20 Disorder of urea cycle metabolism, unspecified; H54.62 Unqualified visual loss, left eye, normal vision right eye; R09.81 Nasal congestion; Z79.899 Other long term (current) drug therapy; Z86.11 Personal history of tuberculosis
CPT/HCPCS: 0241U-QW; 36415; 80053; 80305; 80307; 82140; 85027; 86780; 93005; 93010

== ENCOUNTER 2024-03-09 19:47 | Inpatient (IN) | payer OTHER ==
[2024-03-09 22:13] VITALS: BMI 26.3
[2024-03-09] MEDS ORDERED: POLYETHYLENE GLYCOL (HEALTHYLAX) 3350 17 GM PACKET PO PRN (22:37)
[2024-03-09] MEDS ORDERED: MAG HYDROX/AL HYDROX/SIMETH 30 ML UNIT-DOSE CUP PO PRN (22:37)
[2024-03-09] MEDS ORDERED: MAGNESIUM HYDROX 2400MG/30ML ORAL SUSPENSION 30 ML CUP PO PRN (22:37)
[2024-03-09] MEDS ORDERED: BISMUTH SUBSALICYLATE 524 MG/30 ML PO PRN (22:37)
[2024-03-09] MEDS ORDERED: ONDANSETRON *ODT* 4 MG TABLET SL PRN (22:37)
[2024-03-09] MEDS ORDERED: BENZOCAINE/MENTHOL (CHLORASEPTIC ) LOZENGE MM PRN (22:37)
[2024-03-09] MEDS ORDERED: IBUPROFEN 400 MG TABLET (FP) PO PRN (22:37)
[2024-03-09] MEDS ORDERED: LOPERAMIDE HCL 2 MG CAPSULE PO PRN (22:37)
[2024-03-09] MEDS ORDERED: guaiFENesin 600 MG TABLET.ER (FP) PO PRN (22:37)
[2024-03-09] MEDS ORDERED: DICYCLOMINE HCL 10 MG CAPSULE PO PRN (22:37)
[2024-03-09] MEDS ORDERED: BENZONATATE 200 MG CAPSULE PO PRN (22:37)
[2024-03-09] MEDS: diazePAM 5 MG TABLET PO SCH (23:49)
[2024-03-09] MEDS: hydrOXYzine PAMOATE 25 MG CAPSULE (FP) PO PRN (23:49)
[2024-03-10] MEDS: diazePAM 5 MG TABLET PO ONE (06:19)
[2024-03-10 09:20] LABS: HEMOGLOBIN 12.8 GM/dL (11.7-16.9); MCH 29.6 pg (25.7-33.7); MCHC 34.5 g/dl (32.0-35.9); MEAN CELL VOLUME 85.8 fl (80-96); MEAN PLT VOLUME 8.5 fl (7.5-11.1); PLATELET COUNT 156 10^3/uL (134-434); RBC 4.31 M/mm3 (4.00-5.60); RDW 16.4 % (11.9-15.9); WHITE BLOOD COUNT 8.4 K/mm3 (4.0-10.0)
[2024-03-10 09:28] LABS: CHLORIDE 107 mmol/L (98-107); POTASSIUM 3.7 mmol/L (3.5-5.1); SODIUM 141 mmol/L (136-145)
[2024-03-10 09:36] LABS: BLOOD UREA NITROGEN 23.4 mg/dL (7-18)
[2024-03-10 09:45] LABS: ALBUMIN 2.8 g/dl (3.4-5.0); ANION GAP 8 mmol/L (4-13); CALCIUM 8.9 mg/dL (8.5-10.1); CO2 26 mmol/L (21-32); GLUCOSE,RANDOM 103 mg/dL (74-106)
[2024-03-10 09:48] LABS: CREATININE 1.1 mg/dL (0.55-1.3); SGOT/AST 26 U/L (15-37); SGPT/ALT 20 U/L (13-61)
[2024-03-10 09:49] LABS: BILIRUBIN,TOTAL 0.3 mg/dL (0.2-1)
[2024-03-10 09:50] LABS: TOT PROT 6.1 g/dl (6.4-8.2)
[2024-03-10 09:51] LABS: ALK PHOS 85 U/L (45-117)
[2024-03-10] MEDS: PRENATAL VITAMINS W/ FOLIC ACID TABLET (FP) PO SCH (10:27)
[2024-03-10] MEDS: METHOCARBAMOL 500 MG TABLET PO PRN (20:35)
[2024-03-10] MEDS: ACETAMINOPHEN 325 MG TABLET (FP) PO PRN (20:36)
[2024-03-10] MEDS: diazePAM 5 MG TABLET PO PRN (21:14)
[2024-03-10] MEDS: THIAMINE 100 MG TABLET PO SCH (21:15)
[2024-03-10] MEDS: MELATONIN 5 MG TABLETS PO SCH (21:15)
[2024-03-11] MEDS: diazePAM 5 MG TABLET PO SCH (05:55)
[2024-03-11] MEDS: IBUPROFEN 600 MG TABLET (FP) PO PRN (05:56)
[2024-03-12] MEDS: SULFAMETHOXAZOLE/TRIMETHOPRIM 800MG/160MG D.S. TABLET PO SCH (00:33)
[2024-03-12] MEDS: ACETAMINOPHEN 325 MG TABLET (FP) PO PRN (00:34)
[2024-03-12] MEDS: diazePAM 5 MG TABLET PO SCH (05:56)
[2024-03-12] MEDS: NAPROXEN 500 MG TABLET PO SCH (22:24)
[2024-03-13] MEDS: CEPHALEXIN MONOHYDRATE 500 MG CAPSULE (UD) PO SCH (06:44)
[2024-03-13 09:06] VITALS: BP 101/69; PULSE 73; RESP 16; TEMP 97.1
== END 2024-03-13 11:02 | disposition home or self-care (01) | DRG 774 ==
LOC: YASAS 19:47 → Y6N 23:22
PROVIDERS: ADMIT Allergy & Immunology; ATTEND Surgery
PROC: HZ2ZZZZ Detoxification Services for Substance Abuse Treatment (ICD-10-PCS; principal; 2024-03-09)
DX: F10.230 Alcohol dependence with withdrawal, uncomplicated (principal); F14.20 Cocaine dependence, uncomplicated; F12.20 Cannabis dependence, uncomplicated; F17.210 Nicotine dependence, cigarettes, uncomplicated; B20 Human immunodeficiency virus [HIV] disease; J44.9 Chronic obstructive pulmonary disease, unspecified; K21.9 Gastro-esophageal reflux disease without esophagitis; L02.31 Cutaneous abscess of buttock; K29.20 Alcoholic gastritis without bleeding; Z56.0 Unemployment, unspecified
CPT/HCPCS: 36415; 80053; 80305; 80307; 85027; 86780

== ENCOUNTER 2024-03-12 19:09 | Emergency (ER) | payer OTHER ==
[2024-03-12 19:13] VITALS: BP 126/85; PULSE 90; RESP 20; TEMP 98.3; BMI 29.2
[2024-03-12] MEDS ORDERED: IBUPROFEN 400 MG TABLET (FP) PO ONE (20:13)
[2024-03-12] MEDS ORDERED: ACETAMINOPHEN 500 MG TABLET (FP) ONE (20:14)
[2024-03-12] MEDS ORDERED: SULFAMETHOXAZOLE/TRIMETHOPRIM 800MG/160MG D.S. TABLET ONE (20:14)
[2024-03-12] MEDS: ACETAMINOPHEN 500 MG TABLET (FP) PO ONE (20:21)
[2024-03-12] MEDS: SULFAMETHOXAZOLE/TRIMETHOPRIM 800MG/160MG D.S. TABLET PO ONE (20:21)
[2024-03-12] MEDS: IBUPROFEN 400 MG TABLET (FP) PO ONE (20:21)
[2024-03-12] MEDS: CEPHALEXIN MONOHYDRATE 500 MG CAPSULE (UD) PO ONE (20:22)
[2024-03-12] MEDS ORDERED: oxyCODONE HCL 5 MG TABLET ONE (20:32)
[2024-03-12] MEDS: oxyCODONE HCL 5 MG TABLET PO ONE (20:35)
== END 2024-03-12 20:36 ==
LOC: JER 19:09
DX: L02.31 Cutaneous abscess of buttock (principal); L02.415 Cutaneous abscess of right lower limb
CPT/HCPCS: 99284-25